=== PATIENT | female | born 1995 | race Caucasian/White ===

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

== ENCOUNTER 2017-02-14 11:30 | Emergency (ER) | payer MEDICAID, OTHER ==
[~2017-02-14] VITALS: Ht 157.5 cm; Wt 84.4 kg
[~2017-02-14 11:30] MED LIST changes: +ATOM40CA PO; +FLUO20CA9 PO; +NEXP1IMP SC; +NORC1TAB4 PO; -NORC5TAB PO; +OXAZ10CA PO
[2017-02-14 11:31] VITALS: BP 128/61
[2017-02-14] MEDS ORDERED: ACETAMINOPH W/CODEINE #3 TAB UD PO ONE (11:45)
[2017-02-14] MEDS ORDERED: NAPR500T2 PO (12:24)
--- NOTE | 2017-02-14 12:27 | REP ---
RIGHT WRIST, FOUR VIEWS: HISTORY: Fall. There is no acute fracture or dislocation. The joint spaces are normal in appearance. IMPRESSION: There is no acute fracture or dislocation. Signed by Mario Plunkett MD 02/14/2017 12:30 P
--- NOTE | 2017-02-14 15:07 | REP ---
RIGHT HAND, FOUR VIEWS: HISTORY: Fall. There is no acute fracture or dislocation. The joint spaces are normal in appearance. IMPRESSION: There is no acute fracture or dislocation. Signed by Mario Plunkett MD 02/14/2017 03:10 P
== END 2017-02-14 12:36 | disposition home or self-care (01) ==
LOC: M ED 11:57
DX: S60.221A Contusion of right hand, initial encounter (principal); S60.211A Contusion of right wrist, initial encounter; W01.0XXA Fall on same level from slipping, tripping and stumbling without subsequent striking against object, initial encounter; Y92.039 Unspecified place in apartment as the place of occurrence of the external cause; Y93.89 Activity, other specified; Y99.8 Other external cause status; F32.9 Major depressive disorder, single episode, unspecified; F41.9 Anxiety disorder, unspecified; Z79.899 Other long term (current) drug therapy; Z79.3 Long term (current) use of hormonal contraceptives; Z88.8 Allergy status to other drugs, medicaments and biological substances

== ENCOUNTER 2017-03-04 17:39 | Emergency (ER) | payer OTHER ==
[~2017-03-04] VITALS: Ht 154.9 cm; Wt 84.8 kg
[~2017-03-04 17:39] MED LIST changes: +NAPR500T2 PO
[2017-03-04] MEDS ORDERED: CLONI1TA PO (17:47)
[2017-03-04] MEDS: ONDANSETRON 4MG/2ML VIAL (J2405) IV ONE (19:06)
[2017-03-04] MEDS: NS 500 ML IV ONE (19:06)
[2017-03-04] MEDS: KETOROLAC 30 MG/ML VIAL (J1885) IV ONE (19:06)
[2017-03-04 19:13] LABS: BASO % 0.3 % (0.0-1.0); EOS # 0.6 K/mm3 (0.0-0.50); EOS % 4.8 % (0.0-3.0); LARGE UNSTAINED CELL # 0.2 K/mm3 (0.0-0.4); LARGE UNSTAINED CELL % 1.4 % (0.0-4.0); LYMPH # 3.5 K/mm3 (1.5-6.5); LYMPH % 27.1 % (24.0-44.0); MEAN CORPUSCULAR HEMOGLOBIN 26.9 pg (27.0-33.0); MEAN CORPUSCULAR HGB CONC 34.3 g/dl (32.0-36.5); MEAN CORPUSCULAR VOLUME 78.4 fl (80.0-96.0); MONO # 0.5 K/mm3 (0.0-0.8); MONO % 4.3 % (0.0-5.0); NEUTROPHILS # 7.6 K/mm3 (1.8-7.7); NEUTROPHILS % 62.1 % (36.0-66.0); PLATELET COUNT, AUTOMATED 299 k/mm3 (150-450); RED CELL DISTRIBUTION WIDTH 13.7 % (11.5-14.5); WHITE BLOOD COUNT 12.3 K/mm3 (4.0-10.0)
[2017-03-04 19:29] LABS: ALBUMIN 3.5 GM/DL (3.2-5.2); ALBUMIN/GLOBULIN RATIO 0.95 (1.00-1.93); ALKALINE PHOSPHATASE 79 U/L (45-117); ALT/SGPT 19 U/L (12-78); ANION GAP 6 MEQ/L (8-16); AST/SGOT 10 U/L (15-37); BILIRUBIN,DIRECT < 0.1 MG/DL (0.0-0.2); BILIRUBIN,TOTAL 0.3 MG/DL (0.2-1.0); BLOOD UREA NITROGEN 11 MG/DL (7-18); CALCIUM LEVEL 8.4 MG/DL (8.5-10.1); CARBON DIOXIDE LEVEL 27 MEQ/L (21-32); CHLORIDE LEVEL 109 MEQ/L (98-107); CREATININE FOR GFR 0.84 MG/DL (0.55-1.02); GLUCOSE, FASTING 84 MG/DL (70-105); POTASSIUM SERUM 3.6 MEQ/L (3.5-5.1); SODIUM LEVEL 142 MEQ/L (136-145); TOTAL PROTEIN 7.2 GM/DL (6.4-8.2)
[2017-03-04] MEDS: MORPHINE 4 MG/ML 1ML SYRINGE IV ONE (20:24)
[2017-03-04] MEDS ORDERED: ISOVUE-370 76% 100ML VIAL (Q9967) As Ordered ONE (20:41)
--- NOTE | 2017-03-04 21:30 | REPUSA ---
CT of the abdomen and pelvis with contrast Clinical statement: Pain. Technique: Multiple axial CT images were obtained from the base of the lungs through the floor of the pelvis utilizing 5 mm axial slices after administration of nonionic intravenous contrast. Coronal an d sagittal reconstructions were also obtained. Comparison: 05/05/2016. Findings: Chest: The visualized lung bases are clear. Abdomen: The liver, spleen, pancreas, kidneys, and adrenal glands are unremarkable. The patient is st atus post cholecystectomy. The aorta is within normal limits. There is no evidence of abdominal lymph adenopathy or ascites. Pelvis: The bowel is unremarkable, with no obstructive or inflammatory changes. The appendix is erica l. The urinary bladder is within normal limits. The other pelvic structures appear grossly intact. Th ere is no evidence of pelvic lymphadenopathy or ascites. Bones: There are no suspicious osseous abnormalities seen. Impression: Unremarkable CT examination of the abdomen and pelvis.
[2017-03-04 21:49] VITALS: BP 129/63
[2017-03-04] MEDS: MAGNESIUM CITRATE 300 ML BTL PO ONE (21:50)
== END 2017-03-04 21:52 | disposition home or self-care (01) ==
LOC: M ED 18:26
DX: K59.00 Constipation, unspecified (principal); Z79.3 Long term (current) use of hormonal contraceptives; Z79.899 Other long term (current) drug therapy; Z88.8 Allergy status to other drugs, medicaments and biological substances
CPT/HCPCS: 74177; 80048; 80076; 81001; 81025; 83690; 85025; 96361; 96374; 96375; 99283; J1885; J2405; Q9967

== ENCOUNTER 2017-03-31 11:34 | Emergency (ER) | payer OTHER ==
[~2017-03-31 11:34] MED LIST changes: +CLONI1TA PO; +FLUO20CA19 PO; -FLUO20CA9 PO; -NAPR500T2 PO; +NAPR500T3 PO; -OXAZ10CA PO; +OXAZ10CA3 PO
[2017-03-31 12:49] LABS: MEAN CORPUSCULAR HEMOGLOBIN 26.6 pg (27.0-33.0); MEAN CORPUSCULAR HGB CONC 34.1 g/dl (32.0-36.5); MEAN CORPUSCULAR VOLUME 77.9 fl (80.0-96.0); RED CELL DISTRIBUTION WIDTH 13.6 % (11.5-14.5); WHITE BLOOD COUNT 8.6 K/mm3 (4.0-10.0)
[2017-03-31 13:11] LABS: CONTROL LINE HCG INT CTR LINE PRESENT
[2017-03-31 14:09] LABS: ALBUMIN 3.6 GM/DL (3.2-5.2); ALBUMIN/GLOBULIN RATIO 1.03 (1.00-1.93); ALKALINE PHOSPHATASE 74 U/L (45-117); ALT/SGPT 17 U/L (12-78); ANION GAP 5 MEQ/L (8-16); AST/SGOT 8 U/L (15-37); BILIRUBIN,DIRECT < 0.1 MG/DL (0.0-0.2); BILIRUBIN,TOTAL 0.4 MG/DL (0.2-1.0); BLOOD UREA NITROGEN 12 MG/DL (7-18); CALCIUM LEVEL 8.7 MG/DL (8.5-10.1); CARBON DIOXIDE LEVEL 26 MEQ/L (21-32); CHLORIDE LEVEL 109 MEQ/L (98-107); CREATININE FOR GFR 0.78 MG/DL (0.55-1.02); GLUCOSE, FASTING 84 MG/DL (70-105); POTASSIUM SERUM 3.6 MEQ/L (3.5-5.1); SODIUM LEVEL 140 MEQ/L (136-145); TOTAL PROTEIN 7.1 GM/DL (6.4-8.2)
== END 2017-03-31 14:06 | disposition left against medical advice (07) ==
LOC: M ED 13:11
DX: S50.811A Abrasion of right forearm, initial encounter (principal); X78.1XXA Intentional self-harm by knife, initial encounter; Y92.9 Unspecified place or not applicable; Y93.9 Activity, unspecified; Y99.8 Other external cause status; F32.9 Major depressive disorder, single episode, unspecified; F41.9 Anxiety disorder, unspecified; F12.10 Cannabis abuse, uncomplicated; Z79.3 Long term (current) use of hormonal contraceptives; Z79.899 Other long term (current) drug therapy; Z88.8 Allergy status to other drugs, medicaments and biological substances

== ENCOUNTER 2017-04-13 16:54 | Emergency (ER) | payer OTHER ==
[~2017-04-13] VITALS: Ht 154.9 cm; Wt 84.0 kg
[2017-04-13] MEDS ORDERED: HYDR50TA70 PO (17:08)
[2017-04-13] MEDS ORDERED: BUSP10TA PO (17:08)
[2017-04-13 18:20] LABS: MEAN CORPUSCULAR HEMOGLOBIN 27.1 pg (27.0-33.0); MEAN CORPUSCULAR HGB CONC 34.4 g/dl (32.0-36.5); MEAN CORPUSCULAR VOLUME 78.7 fl (80.0-96.0); RED CELL DISTRIBUTION WIDTH 13.3 % (11.5-14.5); WHITE BLOOD COUNT 9.3 K/mm3 (4.0-10.0)
[2017-04-13 18:33] LABS: CONTROL LINE HCG INT CTR LINE PRESENT
[2017-04-13 18:36] LABS: METHADONE URINE NEGATIVE (NEGATIVE)
[2017-04-13 18:54] LABS: ALBUMIN 3.5 GM/DL (3.2-5.2); ALBUMIN/GLOBULIN RATIO 1.13 (1.00-1.93); ALKALINE PHOSPHATASE 74 U/L (45-117); ALT/SGPT 25 U/L (12-78); ANION GAP 6 MEQ/L (8-16); AST/SGOT 10 U/L (15-37); BILIRUBIN,DIRECT < 0.1 MG/DL (0.0-0.2); BILIRUBIN,TOTAL 0.2 MG/DL (0.2-1.0); BLOOD UREA NITROGEN 13 MG/DL (7-18); CALCIUM LEVEL 8.5 MG/DL (8.5-10.1); CARBON DIOXIDE LEVEL 26 MEQ/L (21-32); CHLORIDE LEVEL 113 MEQ/L (98-107); CREATININE FOR GFR 1.05 MG/DL (0.55-1.02); GLUCOSE, FASTING 88 MG/DL (70-105); POTASSIUM SERUM 3.8 MEQ/L (3.5-5.1); SODIUM LEVEL 145 MEQ/L (136-145); TOTAL PROTEIN 6.6 GM/DL (6.4-8.2)
[2017-04-13 19:17] VITALS: BP 136/74
== END 2017-04-13 19:19 | disposition home or self-care (01) ==
LOC: M ED 16:54
DX: F19.10 Other psychoactive substance abuse, uncomplicated (principal); F99 Mental disorder, not otherwise specified; Z79.899 Other long term (current) drug therapy; Z79.3 Long term (current) use of hormonal contraceptives; Z88.8 Allergy status to other drugs, medicaments and biological substances

== ENCOUNTER 2017-04-24 23:04 | Emergency (ER) | payer OTHER ==
[~2017-04-24] VITALS: Ht 157.5 cm; Wt 83.9 kg
[~2017-04-24 23:04] MED LIST changes: +BUSP10TA PO; +HYDR50TA70 PO
[2017-04-24] MEDS ORDERED: PRENTAB40 PO (23:24)
[2017-04-25] MEDS ORDERED: KETOROLAC 30 MG/ML VIAL (J1885) IV ONE (00:30)
[2017-04-25 01:24] LABS: BASO # 0.1 K/mm3 (0.0-0.2); BASO % 0.5 % (0.0-1.0); EOS # 0.5 K/mm3 (0.0-0.50); EOS % 3.9 % (0.0-3.0); LARGE UNSTAINED CELL # 0.2 K/mm3 (0.0-0.4); LARGE UNSTAINED CELL % 1.6 % (0.0-4.0); LYMPH # 3.7 K/mm3 (1.5-6.5); LYMPH % 28.2 % (24.0-44.0); MEAN CORPUSCULAR HEMOGLOBIN 26.2 pg (27.0-33.0); MEAN CORPUSCULAR HGB CONC 33.7 g/dl (32.0-36.5); MEAN CORPUSCULAR VOLUME 77.9 fl (80.0-96.0); MONO # 0.5 K/mm3 (0.0-0.8); NEUTROPHILS % 61.8 % (36.0-66.0); PLATELET COUNT, AUTOMATED 326 k/mm3 (150-450)
[2017-04-25 01:27] LABS: CONTROL LINE HCG INT CTR LINE PRESENT
[2017-04-25 01:29] LABS: METHADONE URINE NEGATIVE (NEGATIVE)
[2017-04-25 01:32] LABS: ANION GAP 6 MEQ/L (8-16); CARBON DIOXIDE LEVEL 25 MEQ/L (21-32); CHLORIDE LEVEL 107 MEQ/L (98-107); CREATININE FOR GFR 0.87 MG/DL (0.55-1.02); GLUCOSE, FASTING 85 MG/DL (70-105); POTASSIUM SERUM 3.5 MEQ/L (3.5-5.1); SODIUM LEVEL 138 MEQ/L (136-145)
[2017-04-25 01:35] LABS: BLOOD UREA NITROGEN 11 MG/DL (7-18)
--- NOTE | 2017-04-25 02:15 | REP ---
Clinical: Chest pain . Comparison: 07/22/2014 . Technique: PA and lateral. Findings: The mediastinum and cardiac silhouette are normal. The lung garcia are clear and without acute consolidation, effusion, or pneumothorax. The skeletal structures are intact and normal. Impression: 1. No acute cardiopulmonary process. Signed by Chava Sumner MD 04/25/2017 02:07 A
[2017-04-25] MEDS ORDERED: NAPR500T PO (03:21)
[2017-04-25 03:27] VITALS: BP 115/58
--- NOTE | 2017-04-25 21:43 | ECGEPIP ---
Stationary ECG Study [facility] - ED Test Date: 2017-04-24 Pat Name: DILCIA KAUR Department: Room: - Gender: F Building Certifier: : 1995 Requested By: ALFONSO Olmos Order Number: [id number] Reading MD: Luz Marina Meyer Measurements Intervals [place] Rate: 64 P: 43 [place]: 146 QRS: 57 QRSD: 87 T: 30 QT: 366 QTc: 379 Interpretive Statements SINUS RHYTHM WITH SINUS ARRHYTHMIA SIMILAR 12/27/16 Electronically Signed On 04-25-2017 21:43:10 EDT by Luz Marina Meyer
== END 2017-04-25 03:38 | disposition home or self-care (01) ==
LOC: M ED 23:04
DX: R07.89 Other chest pain (principal); D64.9 Anemia, unspecified; Z82.49 Family history of ischemic heart disease and other diseases of the circulatory system; Z88.8 Allergy status to other drugs, medicaments and biological substances; Z79.3 Long term (current) use of hormonal contraceptives; Z79.899 Other long term (current) drug therapy

== ENCOUNTER 2017-05-13 21:23 | Emergency (ER) | payer OTHER ==
[~2017-05-13] VITALS: Ht 157.5 cm; Wt 84.5 kg
[~2017-05-13 21:23] MED LIST changes: +NAPR500T PO; +PRENTAB40 PO
[2017-05-13 21:24] VITALS: BP 123/71
[2017-05-13] MEDS ORDERED: NAPROXEN 250 MG TAB PO ONE (22:15)
--- NOTE | 2017-05-14 01:56 | REP ---
Clinical: Trauma. Technique: AP, lateral, bilateral oblique views right wrist . Findings: The carpal bones, surrounding osseous structures, soft tissues, and joint spaces are normal. There is no evidence for acute fracture or dislocation. No subcutaneous emphysema or radiodense foreign body. Impression: Normal wrist series. No acute fracture or dislocation Signed by Chava Sumner MD 05/14/2017 01:48 A
== END 2017-05-13 23:06 | disposition home or self-care (01) ==
LOC: M ED 21:23
DX: S60.211A Contusion of right wrist, initial encounter (principal); Y04.8XXA Assault by other bodily force, initial encounter; Y92.019 Unspecified place in single-family (private) house as the place of occurrence of the external cause; Y93.9 Activity, unspecified; Y99.8 Other external cause status; F32.9 Major depressive disorder, single episode, unspecified; F41.9 Anxiety disorder, unspecified; G43.909 Migraine, unspecified, not intractable, without status migrainosus; Z90.49 Acquired absence of other specified parts of digestive tract; Z79.3 Long term (current) use of hormonal contraceptives; Z79.899 Other long term (current) drug therapy; Z88.8 Allergy status to other drugs, medicaments and biological substances

== ENCOUNTER 2017-05-21 18:46 | Inpatient (IN) | payer MEDICAID, OTHER ==
[~2017-05-21] VITALS: Ht 157.5 cm; Wt 86.4 kg
[2017-05-21 20:32] LABS: MEAN CORPUSCULAR HEMOGLOBIN 26.1 pg (27.0-33.0); MEAN CORPUSCULAR VOLUME 76.9 fl (80.0-96.0); RED CELL DISTRIBUTION WIDTH 12.9 % (11.5-14.5); WHITE BLOOD COUNT 10.2 K/mm3 (4.0-10.0)
[2017-05-21 20:47] LABS: CONTROL LINE HCG INT CTR LINE PRESENT
[2017-05-21 20:54] LABS: METHADONE URINE NEGATIVE (NEGATIVE)
[2017-05-21 21:03] LABS: ALBUMIN 3.5 GM/DL (3.2-5.2); ALBUMIN/GLOBULIN RATIO 1.06 (1.00-1.93); ALKALINE PHOSPHATASE 87 U/L (45-117); ALT/SGPT 25 U/L (12-78); ANION GAP 10 MEQ/L (8-16); AST/SGOT 17 U/L (15-37); BILIRUBIN,DIRECT 0.1 MG/DL (0.0-0.2); BILIRUBIN,TOTAL 0.4 MG/DL (0.2-1.0); BLOOD UREA NITROGEN 13 MG/DL (7-18); CALCIUM LEVEL 8.7 MG/DL (8.5-10.1); CARBON DIOXIDE LEVEL 24 MEQ/L (21-32); CHLORIDE LEVEL 108 MEQ/L (98-107); CREATININE FOR GFR 0.82 MG/DL (0.55-1.02); GLUCOSE, FASTING 85 MG/DL (70-105); POTASSIUM SERUM 3.8 MEQ/L (3.5-5.1); SODIUM LEVEL 142 MEQ/L (136-145); TOTAL PROTEIN 6.8 GM/DL (6.4-8.2)
[2017-05-21] MEDS ORDERED: traZODone 50 MG TAB PO PRN (21:30)
[2017-05-21] MEDS ORDERED: MOM 30ML SUSPENSION UDC PO PRN (21:30)
[2017-05-21] MEDS ORDERED: MAALOX 30 ML SUSP *UDC PO PRN (21:30)
[2017-05-21] MEDS ORDERED: VITA1CAP40 PO (22:21)
[2017-05-21] MEDS ORDERED: BUSP1TAB PO (22:21)
[2017-05-22 07:00] VITALS: BP 110/50
[2017-05-22] MEDS ORDERED: MUPIROCIN 2% OINT 22 GM TUBE TOP PRN (10:45)
--- NOTE | 2017-05-22 10:47 | HPEPDOC ---
Medical History and Physical Date of Admission May 21, 2017 at 21:20 History and Physical PCP: Mirtha TEAGUE ATTENDING: Dr. Ishan Nieves HPI:21yoF admitted to [facility] for unspecified depressive disorder, being medically examined today. No acute medical complaints today. Patient reports a recent piercing on the left upper lip which was done unprofessionally. There is some irritation noted. No drainage. Bilateral superficial forearm lacerations, patient denies pain. Denies any fevers, chills, weakness, fatigue, VAZQUEZ, CP, SOB, cough, palpitations, abdominal pain, N/V/D or changes in bowel or bladder habits. PMHx: Endometriosis Bipolar disorder Personality disorder ADHD Anxiety Depression Self-mutilation PTSD Obesity BMI 34.1 Asthma Vitamin D deficiency PSHX: Tonsillectomy/adenoidectomy Cholecystectomy Tympanostomy tubes D&C Fernando 2013 Nexplanon SOCHX: Resides in: Patient states she is homeless Marital Status: Single Kids: None Employment: Currently pursuing GED Tobacco use: Denies ETOH: Patient states 5 shots of liquor yesterday Illicit Drugs: Patient states she has not used any substances in 2 months. From December until March 2017 states she was using heroin, methamphetamine, crack cocaine, cocaine and Qi. IV Drug Use: 1 per patient Tattoos done unprofessionally: 2 FAMHX: Mother: Alive, heart disease, ADMINISTRATIVE LIBRARY ASSISTANT cancer Father: Alive, unknown Siblings: Alive, well Children: Alive, well Unexpected deaths due to medical reasons: None. ROS: As noted in HPI, otherwise 11pt ROS of systems reviewed and remarkable only for LMP April 2017, patient with Nexplanon. PE: GEN: 21yoF, appears stated age. Well-nourished, well developed. No acute distress. Alert and oriented x 3. Pleasant, interactive. HEENT: Normocephalic, atraumatic. Pupils are equal, round, and reactive to light. Extraocular movements are intact. No nystagmus appreciated. Sclera are nonicteric. Conjunctiva without injection. Nose midline. Nasal turbinates without bogginess. EACs both patent BL. TMs both visualized and martinez with good cone of light, no bulging or erythema. No facial asymmetry. Moist mucous membranes. Dentition fair. Pharynx pink and moist, no cobblestoning. There is a piercing noted in the left upper lip with mild erythema, no drainage. Neck supple, trachea midline. No lymphadenopathy or thyromegaly appreciated. CHEST: Regular rate and rhythm, +S1, +S2 LUNGS: Clear to auscultation bilaterally. No wheezes, rales, or rhonchi. Breathing appears symmetric and easy. Patient is speaking in full sentences. No accessory muscle use. ABD: Round, soft, non-tender, non-distended. +Bowel sounds throughout. No rebound or guarding. No costovertebral angle tenderness. EXT: Pulses 2+ bilaterally dorsalis pedis and radial. No lower extremity edema appreciated. SKIN: [place]omin[place], dry, warm. Capillary refill <2sec. No rashes. Bilateral forearm lacerations are noted, superficial. Mild erythema, no drainage. NEURO: Alert and oriented x 3. Cranial nerves III-XII are intact. No focal deficits appreciated. EKG: pending. A&P: 21yoF admitted to [facility] for unspecified depressive disorder 1. Psych. Plan per Psychiatry. Obtain baseline EKG to assure the safety of psychiatric medications as they can prolong the QT interval. 2. IVDU. Patient agrees to HIV and hepatitis screening. 3. Asthma. Albuterol HFA 2 puffs every 4 hours as needed. 4. Follow up with PCP on discharge. 5. Obesity. BMI 34.1. Complicates care. TSH is noted within normal limits. Glucose is noted within normal limits. 6. Mild leukocytosis. Patient is afebrile. Asymptomatic. Recheck CBC in a.m. 7. Bilateral superficial forearm lacerations. Apply Bactroban twice a day as needed. Dry dressing if needed. 8. Recent left upper lip piercing. Apply Bactroban twice a day as needed. Keep area clean and dry. 9. Vitamin D deficiency. Continue vitamin D 50,000 units weekly. 10. Staff member Erica present throughout exam. Vital Signs Vital Signs Date Time Temp Pulse Resp B/P (MAP) Pulse Ox O2 Delivery O2 Flow Rate FiO2 05/22/17 07:00 98.8 89 16 110/50 (70) 95 Room Air Laboratory Data Labs 24H Laboratory Tests 2 05/21/17 19:43: Anion Gap 10, Calcium Level 8.7, Aspartate Amino Transf (AST/SGOT) 17, Alanine Aminotransferase (ALT/SGPT) 25, Alkaline Phosphatase 87, Total Bilirubin 0.4, Direct Bilirubin 0.1, Total Protein 6.8, Albumin 3.5, Albumin/Globulin Ratio 1.06, Thyroid Stimulating Hormone (TSH) 2.610, Human Chorionic Gonadotropin, Qual NEGATIVE, Salicylates Level < 1.7L, Urine Amphetamines Screen NEGATIVE, Urine Benzodiazepines Screen NEGATIVE, Urine Opiates Screen NEGATIVE, Urine Methadone Screen NEGATIVE, Acetaminophen Level < 2.0L, Urine Barbiturates Screen NEGATIVE, Urine Phencyclidine Screen NEGATIVE, Urine Cocaine Metabolite Screen NEGATIVE, Urine Cannabinoids Screen NEGATIVE, Ethyl Alcohol Level < 0.003 CBC/BMP Laboratory Tests 05/21/17 19:43 Red Blood Count 4.66, Mean Corpuscular Volume 76.9 L, Mean Corpuscular Hemoglobin 26.1 L, Mean Corpuscular Hemoglobin Concent 34.0, Red Cell Distribution Width 12.9 Home Medications Scheduled Buspirone HCl (Buspirone HCl) 7.5 Mg Tab, 7.5 MG PO BID Ergocalciferol (Vitamin D) 50,000 Unit Cap, 50,000 UNIT PO 1XWK TAKES ON SUNDAY MORNINGS Etonogestrel (Nexplanon) 68 Mg Imp, 68 MG SC ASDIRECTED IMPLANTED IN SEPTEMBER 2016; TO BE TAKEN OUT 05/29/17 Hydroxyzine HCl (Hydroxyzine HCl) 50 Mg Tab, 50 MG PO QHS Allergies Coded Allergies: Permethrin (Verified Allergy, Severe, LOTION FOR SCABIES - DIFFICULTY BREATHING, 05/30/16) Halle Giang May 22, 2017 10:47
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
[2017-05-22] MEDS: busPIRone 10 MG TAB PO SCH ×2 (14:47→21:10)
[2017-05-22 18:16] VITALS: BP 125/68
[2017-05-22] MEDS: DIVALPROEX 250MG *ER* TAB PO SCH (21:10)
[2017-05-22] MEDS: ACETAMINOPHEN TAB 650MG DOSE (2X325MG) PO PRN (21:11)
[2017-05-23] MEDS ORDERED: IBUPROFEN 400 MG TAB PO PRN (04:45)
[2017-05-23 07:03] VITALS: BP 117/53
[2017-05-23] MEDS: ACETAMINOPHEN TAB 650MG DOSE (2X325MG) PO PRN ×3 (07:55→21:37)
[2017-05-23 08:06] LABS: MEAN CORPUSCULAR HEMOGLOBIN 26.1 pg (27.0-33.0); MEAN CORPUSCULAR HGB CONC 33.9 g/dl (32.0-36.5); MEAN CORPUSCULAR VOLUME 77.1 fl (80.0-96.0); RED CELL DISTRIBUTION WIDTH 13.1 % (11.5-14.5); WHITE BLOOD COUNT 8.6 K/mm3 (4.0-10.0)
--- NOTE | 2017-05-23 10:55 | MHIPNPDOC ---
[facility] Progress Note Progress Note DATE OF SERVICE: 05/23/17 HISTORY: day 3 of admission for SI. VITAL SIGNS: See below. NEW TEST RESULTS: Hepatitis C Testing- all hepatitis tests and HIV testing were negative CURRENT MEDICATIONS: See below. MENTAL STATUS EXAMINATION: Patient is a 21-year old female, who is freshly showered with wet hair, glasses and appropriate street clothes. Speech: Is clear and logical. Language skills are good. Thought processes including: goal directed. Thought content: appropriate. Abstract reasoning, and computation: good. Description of associations: good. Description of abnormal or psychotic thoughts: denies Aud/Vis disturbance, no delusions of ROSAURA, no FOI. Pt is not currently having suicidal thoughts. Judgment: limited Insight: good. Orientation: well oriented in all spheres. Recent and remote memory: intact. Attention span and concentration: appears adequate. Fund of knowledge: Full. Mood: depressed. Affect: congruent. DIAGNOSES: 1. Bipolar I disorder, current episode depressed, severe without psychotic features ADHD PTSD, chronic Substance abuse in early remission (amphetamines, hallucinogenics, cocaine, cannabis) ASSESSMENT:pts superficial lacerations are highly visible on her forearms. They do not appear infected and are healing slowly. she is keeping them clean. Pt was visited by her mother last night who provided her with clothing. She is in need of a brush and directed to discuss this with staff. Pt attended programming as requested and says the groups are going "okay". Pt reports adequate appetite and po intake. pt reports adequate sleep and states she slept "really well last night". Pt has had 1 dose of Depakote and BuSpar each.She said the BuSpar made her sleepy in the afternoon and she slept about 3 hours. Hopefully her tolerance will increase. MANAGEMENT PLAN: Continue to assess for safety. Monitor effects of medications. Continue close observation and group attendance. Pt states she has "social anxiety" so she will sit in group but does not feel comfortable talking. TIME SPENT: 25 minutes. Vital Signs Vital Signs Date Time Temp Pulse Resp B/P (MAP) Pulse Ox O2 Delivery O2 Flow Rate FiO2 05/23/17 07:03 99.0 63 16 117/53 (74) Room Air 05/22/17 07:00 95 Laboratory Data 24H Labs Laboratory Tests 2 05/23/17 07:38: 25-Hydroxy Vitamin D Total 29.6L CBC/BMP Laboratory Tests 05/23/17 07:38 Red Blood Count 4.78, Mean Corpuscular Volume 77.1 L, Mean Corpuscular Hemoglobin 26.1 L, Mean Corpuscular Hemoglobin Concent 33.9, Red Cell Distribution Width 13.1 Current Medications Current Medications Acetaminophen (Tylenol Tab) 650 mg Q6HP PRN PO HEADACHE or DISCOMFORT Last administered on 05/23/17 07:55; Start 05/21/17 at 21:30; Stop 06/20/17 at 21:29 Al Hydrox/Mg Hydrox/Simethicone (Mylanta) 30 ml Q4HP PRN PO HEARTBURN/ INDIGESTION; Start 05/21/17 at 21:30; Stop 06/20/17 at 21:29 Buspirone HCl (Buspar) 10 mg BID@1430,2100 PO Last administered on 05/22/17 21: 10; Start 05/22/17 at 14:30; Stop 06/21/17 at 14:29 Divalproex Sodium (Depakote Er) 250 mg QHS PO Last administered on 05/22/17 21: 10; Start 05/22/17 at 21:00; Stop 06/21/17 at 20:59 Home Med (Med Rec Complete!) ASDIRECTED XX ; Start 05/21/17 at 22:30; Stop at 22:30; Status DC Ibuprofen (Advil) 400 mg Q8HP PRN PO TOOTHACHE; Start 05/23/17 at 04:45; Stop at 04:44 Magnesium Hydroxide (Milk Of Magnesia) 30 ml DAILYPRN PRN PO CONSTIPATION; Start 05/21/17 at 21:30; Stop 06/20/17 at 21:29 Mupirocin (Bactroban 2% Ointment) 1 dose BID PRN TOP REDNESS/IRRITATION Last administered on 05/22/17 14:48; Start 05/22/17 at 10:45; Stop 06/21/17 at 10:44 Trazodone HCl (Desyrel) 50 mg QHSP PRN PO INSOMNIA; Start 05/21/17 at 21:30; Stop 06/20/17 at 21:29; Status Cancel Allergies Coded Allergies: Permethrin (Verified Allergy, Severe, LOTION FOR SCABIES - DIFFICULTY BREATHING, 05/30/16) Ev Eisenberg May 23, 2017 10:55
[2017-05-23] MEDS: VITAMIN D 1,000 INTERNATIONAL UNITS TABLET PO SCH (12:34)
[2017-05-23] MEDS: busPIRone 10 MG TAB PO SCH ×2 (14:48→21:37)
[2017-05-23 18:10] VITALS: BP 127/68
[2017-05-23] MEDS: DIVALPROEX 250MG *ER* TAB PO SCH (21:37)
--- NOTE | 2017-05-23 22:41 | ECGEPIP ---
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
[2017-05-24 07:19] VITALS: BP 133/70
[2017-05-24] MEDS: VITAMIN D 1,000 INTERNATIONAL UNITS TABLET PO SCH (08:51)
[2017-05-24] MEDS: ACETAMINOPHEN TAB 650MG DOSE (2X325MG) PO PRN ×2 (11:37→21:03)
[2017-05-24] MEDS: busPIRone 10 MG TAB PO SCH (14:33)
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
[2017-05-24 18:00] VITALS: BP 129/64
[2017-05-24] MEDS: AMITRIPTYLINE 50 MG TAB PO SCH (21:03)
[2017-05-24] MEDS: DIVALPROEX 500MG *ER* TAB PO SCH (21:05)
[2017-05-25 07:00] VITALS: BP 118/57
[2017-05-25] MEDS: VITAMIN D 1,000 INTERNATIONAL UNITS TABLET PO SCH (09:27)
[2017-05-25] MEDS: busPIRone 10 MG TAB PO SCH ×2 (11:23→14:07)
--- NOTE | 2017-05-25 13:36 | MHIPNPDOC ---
[facility] Progress Note Progress Note DATE OF SERVICE: 05/25/17 HISTORY: day 5 of admission for self harm after eviction notice and break up with BF. [place] overwhelmed. VITAL SIGNS: See below. NEW TEST RESULTS: na CURRENT MEDICATIONS: See below. MENTAL STATUS EXAMINATION: Patient is a 21 -year old female, who is short in stature, dark hair, glasses, good eye contact, appears her age, cooperative. Speech: Is spontaneous. Language skills are intact Thought processes including: goal directed. Thought content: appropriate. Abstract reasoning, and computation: good. Description of associations: clear. Description of abnormal or psychotic thoughts: no psychosis. pt denies thoughts or intent of self-harm. Judgment: good. Insight: good. Orientation: well oriented in all spheres. Recent and remote memory: good. Attention span and concentration: varies Fund of knowledge: Full Mood: euthymic. Affect: blunted. DIAGNOSES: 1. Bipolar I disorder, current episode depressed, severe without psychotic features ADHD PTSD, chronic Substance abuse in early remission (amphetamines, hallucinogenics, cocaine, cannabis) . ASSESSMENT:pt reports a much better night of sleep last night and no odd dreams. Changing the dosing schedule of BuSpar and stopping trazodone for amitriptyline has hopefully resolved the issue. She say she feels better on her current combination of medication and does not feel she needs to have Seroquel added as before. Will start her Strattera now. Pt states she is happy with her current medication regime. Pt is attending programming and eating well at meals. Her hygiene is good. Her mood is improved. She has an appt today on the unit with Case Mgt services. No side effects reported regarding starting new meds. Denies problems with n/v/ d or skin rash. No SOB. Denies current SI or HI. Denies impulse to harm self. Appears to be improving. MANAGEMENT PLAN: continue Depakote taper. Will raise to 750mg at hs over weekend and draw a level mid week. After we have a valproic acid level and have established a good sleep pattern we can begin more earnestly to explore housing options however that is already underway. Pt has a job she wants to return to. Continue close observation, continue meds and groups. TIME SPENT: 15 minutes. Vital Signs Vital Signs Date Time Temp Pulse Resp B/P (MAP) Pulse Ox O2 Delivery O2 Flow Rate FiO2 05/25/17 07:00 99.0 66 19 118/57 (77) 05/24/17 07:19 Room Air 05/22/17 07:00 95 Current Medications Current Medications Acetaminophen (Tylenol Tab) 650 mg Q6HP PRN PO HEADACHE or DISCOMFORT Last administered on 05/24/17 21:03; Start 05/21/17 at 21:30; Stop 06/20/17 at 21:29 Al Hydrox/Mg Hydrox/Simethicone (Mylanta) 30 ml Q4HP PRN PO HEARTBURN/ INDIGESTION; Start 05/21/17 at 21:30; Stop 06/20/17 at 21:29 Amitriptyline HCl (Elavil) 100 mg QHS PO Last administered on 05/24/17 21:03; Start 05/24/17 at 21:00; Stop 06/23/17 at 20:59 Buspirone HCl (Buspar) 10 mg BID@1430,2100 PO Last administered on 05/23/17 21: 37; Start 05/22/17 at 14:30; Stop 05/24/17 at 12:15; Status DC Buspirone HCl (Buspar) 10 mg DAILY@1030,1430 PO Last administered on 05/25/17 11:23; Start 05/24/17 at 14:30; Stop 06/23/17 at 14:29 Divalproex Sodium (Depakote Er) 250 mg QHS PO Last administered on 05/23/17 21: 37; Start 05/22/17 at 21:00; Stop 05/24/17 at 12:15; Status DC Divalproex Sodium (Depakote Er) 500 mg QHS PO Last administered on 05/24/17 21 :05; Start 05/24/17 at 21:00; Stop 05/26/17 at 20:59 Divalproex Sodium (Depakote Er) 750 mg QHS PO ; Start 05/26/17 at 21:00; Stop at 20:59 Home Med (Med Rec Complete!) ASDIRECTED XX ; Start 05/21/17 at 22:30; Stop at 22:30; Status DC Ibuprofen (Advil) 400 mg Q8HP PRN PO TOOTHACHE; Start 05/23/17 at 04:45; Stop at 04:44 Magnesium Hydroxide (Milk Of Magnesia) 30 ml DAILYPRN PRN PO CONSTIPATION; Start 05/21/17 at 21:30; Stop 06/20/17 at 21:29 Mupirocin (Bactroban 2% Ointment) 1 dose BID PRN TOP REDNESS/IRRITATION Last administered on 05/22/17 14:48; Start 05/22/17 at 10:45; Stop 06/21/17 at 10:44 Trazodone HCl (Desyrel) 50 mg QHSP PRN PO INSOMNIA; Start 05/21/17 at 21:30; Stop 06/20/17 at 21:29; Status Cancel Vitamin D (Vitamin D) 2,000 units DAILY PO Last administered on 05/25/17 09:27 ; Start 05/23/17 at 09:00; Stop 06/22/17 at 08:59 Allergies Coded Allergies: Permethrin (Verified Allergy, Severe, LOTION FOR SCABIES - DIFFICULTY BREATHING, 05/30/16) Ev Eisenberg May 25, 2017 13:36
[2017-05-25 18:00] VITALS: BP 110/53
[2017-05-25] MEDS: ACETAMINOPHEN TAB 650MG DOSE (2X325MG) PO PRN (20:21)
[2017-05-25] MEDS: AMITRIPTYLINE 50 MG TAB PO SCH (21:20)
[2017-05-25] MEDS: DIVALPROEX 500MG *ER* TAB PO SCH (21:20)
[2017-05-26 06:56] VITALS: BP 107/51
[2017-05-26] MEDS: VITAMIN D 1,000 INTERNATIONAL UNITS TABLET PO SCH (09:42)
[2017-05-26] MEDS: ATOMOXETINE HCL 40 MG CAP (STRATTERA) PO SCH (09:42)
[2017-05-26] MEDS: busPIRone 10 MG TAB PO SCH ×2 (09:43→13:59)
[2017-05-26 18:00] VITALS: BP 127/68
[2017-05-26] MEDS: IBUPROFEN 600 MG TAB PO PRN (22:12)
[2017-05-26] MEDS: DIVALPROEX 250MG *ER* TAB PO SCH (22:12)
[2017-05-26] MEDS: AMITRIPTYLINE 50 MG TAB PO SCH (22:13)
[2017-05-27 06:42] VITALS: BP 111/59
[2017-05-27] MEDS: ATOMOXETINE HCL 40 MG CAP (STRATTERA) PO SCH (09:09)
[2017-05-27] MEDS: VITAMIN D 1,000 INTERNATIONAL UNITS TABLET PO SCH (09:09)
[2017-05-27] MEDS: busPIRone 10 MG TAB PO SCH ×2 (09:41→13:58)
[2017-05-27] MEDS: IBUPROFEN 600 MG TAB PO PRN ×2 (13:09→21:29)
[2017-05-27 18:39] VITALS: BP 135/73
[2017-05-27] MEDS: AMITRIPTYLINE 50 MG TAB PO SCH (21:29)
[2017-05-27] MEDS: DIVALPROEX 250MG *ER* TAB PO SCH (21:29)
[2017-05-27] MEDS: ACETAMINOPHEN TAB 650MG DOSE (2X325MG) PO PRN (21:30)
[2017-05-28 07:24] VITALS: BP 120/56
[2017-05-28] MEDS: busPIRone 10 MG TAB PO SCH ×2 (09:06→14:30)
[2017-05-28] MEDS: VITAMIN D 1,000 INTERNATIONAL UNITS TABLET PO SCH (09:06)
[2017-05-28] MEDS: ATOMOXETINE HCL 40 MG CAP (STRATTERA) PO SCH (09:06)
[2017-05-28] MEDS ORDERED: DEPA250T2 PO (15:25)
[2017-05-28] MEDS ORDERED: BUSP10TA PO (15:25)
[2017-05-28] MEDS ORDERED: IBUP1TAB6 PO (15:25)
[2017-05-28] MEDS ORDERED: AMIT50TA PO (15:25)
[2017-05-28] MEDS ORDERED: ATOM40CA PO (15:25)
--- NOTE | 2017-05-28 15:38 | MHDSPDOC ---
[facility] Discharge Summary Discharge Summary DATE OF ADMISSION: May 21, 2017 at 21:20 DATE OF DISCHARGE: May 28, 2017 DISCHARGE DIAGNOSES: 1. 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 admitted with depression and suicidal ideation. CONSULTANTS INVOLVED: na TREATMENT AND PROGRESS ON THE UNIT : Pt adapted well to the unit. She willingly attended programming and showed that she was invested in her recovery. She has used cutting to vent her frustration over the last several years. She wants to stop but the situation she was in was overwhelming for her. Lisa works at [employer]. She expresses a desire to be on her own and take care of herself. She appears committed to living drug free and staying away from people who will influence her to use drugs. She is proud of having 2 months of clean time. HOSPITAL COURSE: Pt went to programming. She participated in treatment planning and discharge planning. She was helpful and kind to peers.She took medications as prescribed. She could verbalize her lack of impulse control when it comes to cutting and to drug use. She did not feel that her former medications were helping enough. She also has high anxiety and was started on BuSpar while she was here. It will take another week for that medication to become fully therapeutic so she should experience additional relief from the BuSpar. Her Depakote was started at 250 mg at hs and gradually titrated to 750 mg. She was to have a Depakote level tomorrow but was ready for discharge before that could be done. Pt had some difficulty with insomnia when first admitted. She could not take trazodone as it "makes me rageful" so we tried Amitriptyline which she remembered from the past as being helpful for her. She did well on this at 100 mg. No further concerns about insomnia after that. Pt had also been prescribed Strattera for ADHD in the past. Our lowest dose in formulary is 40 mg so she started this last weekend. She states it has helped her focus and her anxiety. Pt tolerated Depakote without problems. She was fully informed about side effects including weight gain and a felling of sluggishness or fatigue. Pt encouraged to exercise regularly and to eat healthy food, less carbs, more protein. Pt also tolerated BuSpar without too much fatigue or dry mouth. She found this medication beneficial as well. DISCHARGE ASSESSMENT: Pt will be discharged on Amitriptyline at hs, BuSpar bid , Depakote at hs and Strattera for ADHD. Her prior authorization for Strattera was faxed to the insurance company prior to leaving the hospital. Pt. is referred for PCP follow up, therapy and medication management. MH needs are addressed by [facility]. She will be living at her Grandmother's with her 3 sisters until DSS or [facility] comes through with housing for her. She has completed paper work for [facility] and is working with [facility] on housing needs. MENTAL STATUS EXAMINATION ON DISCHARGE: Patient is a 21-year old female, who is petite, dark hair, glasses, pleasant mood. Speech is clear. Language skills are intact Thought processes including: goal directed Thought content: appropriate Abstract reasoning, and computation: good. Description of associations: good. Description of abnormal or psychotic thoughts: denies SI and HI, no psychotic symptoms displayed this admission. Judgment: good Insight: good. Orientation to all spheres. Recent and remote memory: intact Attention span and concentration:adequate/good Fund of knowledge:Full Mood: euthymic Affect: some anxiety at times, congruent. MEDICATIONS ON DISCHARGE: - amitriptyline for sleep. - Strattera for ADHD. - BuSpar for anxiety. -Depakote for mood control, impulse control. PLAN/FOLLOWUP ARRANGEMENTS: [facility] appts made for med mgt and therapy. Pt also met with CM while on the unit. The amount of time spent in the coordination of care for this patient was approximately 30 minutes. Vital Signs/I&Os Vital Signs Date Time Temp Pulse Resp B/P (MAP) Pulse Ox O2 Delivery O2 Flow Rate FiO2 05/28/17 07:24 98.3 63 16 120/56 (77) Room Air 05/22/17 07:00 95 Medications Scheduled Amitriptyline HCl (Amitriptyline HCl) 50 Mg Tab, 100 MG PO QHS for INSOMNIA for 7 Days, #7 Atomoxetine HCl (Strattera) 40 Mg Cap, 40 MG PO QAM for adhd for 7 Days, #7 Buspirone HCl (Buspirone HCl) 10 Mg Tab, 10 MG PO DAILY@1030,1430 for ANXIETY for 7 Days, #14 Divalproex Sodium (Depakote ER) 250 Mg Tab, 750 MG PO QHS for impulse control for 7 Days, #21 Ergocalciferol (Vitamin D) 50,000 Unit Cap, 50,000 UNIT PO 1XWK, (Reported) TAKES ON SUNDAY MORNINGS Etonogestrel (Nexplanon) 68 Mg Imp, 68 MG SC ASDIRECTED, (Reported) IMPLANTED IN SEPTEMBER 2016; TO BE TAKEN OUT 05/29/17 Hydroxyzine HCl (Hydroxyzine HCl) 50 Mg Tab, 50 MG PO QHS, (Reported) Scheduled PRN Ibuprofen (Ibuprofen) 600 Mg Tab, 600 MG PO Q6HP PRN for MENSTRUAL CRAMPS for 7 Days, #28 Allergies Coded Allergies: Permethrin (Verified Allergy, Severe, LOTION FOR SCABIES - DIFFICULTY BREATHING, 05/30/16) Ev Eisenberg May 28, 2017 15:38
== END 2017-05-28 16:35 | disposition home or self-care (01) | DRG 885 ==
LOC: M ED 18:46 → M ED INP 21:20 → M PSY 05-22 00:15
PROVIDERS: ADMIT Psychiatry & Neurology Psychiatry; ATTEND Psychiatry & Neurology Psychiatry
DX: F31.4 Bipolar disorder, current episode depressed, severe, without psychotic features (principal); R45.851 Suicidal ideations; F43.12 Post-traumatic stress disorder, chronic; F90.8 Attention-deficit hyperactivity disorder, other type; F19.10 Other psychoactive substance abuse, uncomplicated; Z79.899 Other long term (current) drug therapy; Z88.8 Allergy status to other drugs, medicaments and biological substances; Z91.5 Personal history of self-harm; Z90.49 Acquired absence of other specified parts of digestive tract; J45.909 Unspecified asthma, uncomplicated; E66.9 Obesity, unspecified; D72.829 Elevated white blood cell count, unspecified; E55.9 Vitamin D deficiency, unspecified; S51.812A Laceration without foreign body of left forearm, initial encounter; S51.811A Laceration without foreign body of right forearm, initial encounter; X78.9XXA Intentional self-harm by unspecified sharp object, initial encounter; Y92.9 Unspecified place or not applicable; Y93.9 Activity, unspecified; Y99.9 Unspecified external cause status

== ENCOUNTER 2017-06-15 12:38 | Emergency (ER) | payer MEDICAID, OTHER ==
[~2017-06-15] VITALS: Ht 157.5 cm; Wt 86.4 kg
[~2017-06-15 12:38] MED LIST changes: +AMIT50TA PO; +BUSP1TAB PO; +DEPA250T2 PO; +IBUP1TAB6 PO; +VITA1CAP40 PO
[2017-06-15] MEDS ORDERED: KETOROLAC 60 MG/2 ML VIAL (J1885) IM ONE (14:00)
[2017-06-15] MEDS ORDERED: PRED20TA PO (15:19)
[2017-06-15] MEDS ORDERED: CYCL10TA PO (15:22)
[2017-06-15] MEDS ORDERED: CYCLOBENZAPRINE 10 MG TAB PO ONE (15:30)
[2017-06-15 15:37] VITALS: BP 121/63
== END 2017-06-15 15:38 | disposition home or self-care (01) ==
LOC: M ED 12:38
DX: S39.012A Strain of muscle, fascia and tendon of lower back, initial encounter (principal); X58.XXXA Exposure to other specified factors, initial encounter; Y92.89 Other specified places as the place of occurrence of the external cause; Y93.89 Activity, other specified; Y99.8 Other external cause status; N80.9 Endometriosis, unspecified; F41.9 Anxiety disorder, unspecified; Z88.8 Allergy status to other drugs, medicaments and biological substances; Z79.899 Other long term (current) drug therapy
CPT/HCPCS: 36415; 81001; 81025; 96372; 99283; J1885

== ENCOUNTER 2017-07-10 16:42 | Emergency (ER) | payer MEDICAID, OTHER ==
[~2017-07-10] VITALS: Ht 157.5 cm; Wt 81.8 kg
[~2017-07-10 16:42] MED LIST changes: +CYCL10TA PO; +PRED20TA PO
[2017-07-10 16:43] VITALS: BP 131/80
[2017-07-10] MEDS ORDERED: IBUP-1022 PO (18:11)
--- NOTE | 2017-07-10 18:59 | REP ---
Right ankle four views : There is no fracture or dislocation. Mineralization and joint spaces are normal. There are no calcifications or foreign bodies. Impression: Negative right ankle. There is no change 03/26/2016. No dominant . Signed by Vinay Ríos MD 07/10/2017 06:51 P
== END 2017-07-10 18:32 | disposition home or self-care (01) ==
LOC: M ED 16:42
DX: S93.401A Sprain of unspecified ligament of right ankle, initial encounter (principal); W19.XXXA Unspecified fall, initial encounter; X50.9XXA Other and unspecified overexertion or strenuous movements or postures, initial encounter; Y92.019 Unspecified place in single-family (private) house as the place of occurrence of the external cause; Y93.01 Activity, walking, marching and hiking; Y99.8 Other external cause status; Z79.899 Other long term (current) drug therapy; Z79.3 Long term (current) use of hormonal contraceptives; Z88.8 Allergy status to other drugs, medicaments and biological substances

== ENCOUNTER 2017-09-11 16:00 | Outpatient (RCR) | payer MEDICAID ==
[~2017-09-11 16:00] MED LIST changes: +IBUP-1022 PO
== END 2017-09-13 ==
LOC: M OUTALCOH 16:00
PROVIDERS: ATTEND Psychiatry & Neurology Psychiatry
DX: F12.20 Cannabis dependence, uncomplicated (principal); F15.20 Other stimulant dependence, uncomplicated; F14.10 Cocaine abuse, uncomplicated; F11.20 Opioid dependence, uncomplicated

== ENCOUNTER 2017-09-17 17:44 | Emergency (ER) | payer MEDICAID ==
[~2017-09-17] VITALS: Ht 157.5 cm; Wt 90.0 kg
[2017-09-17 17:44] VITALS: BP 111/68
[2017-09-17 20:16] LABS: BASO % 0.4 % (0.0-1.0); EOS # 0.3 10^3/uL (0.0-0.50); EOS % 3.2 % (0.0-3.0); IMMATURE GRANULOCYTE % 0.2 % (0-0); LYMPH # 2.7 10^3/uL (1.5-6.5); LYMPH % 25.1 % (24.0-44.0); MEAN CORPUSCULAR HEMOGLOBIN 26.2 pg (27.0-33.0); MEAN CORPUSCULAR HGB CONC 33.2 g/dl (32.0-36.5); MEAN CORPUSCULAR VOLUME 78.7 fl (80.0-96.0); MONO # 0.7 10^3/uL (0.0-0.8); MONO % 6.5 % (0.0-5.0); NEUTROPHILS # 6.8 10^3/uL (1.8-7.7); NEUTROPHILS % 64.6 % (36.0-66.0); PLATELET COUNT, AUTOMATED 336 10^3/uL (150-450); RED CELL DISTRIBUTION WIDTH 13.2 % (11.5-14.5); WHITE BLOOD COUNT 10.6 10^3/uL (4.0-10.0)
[2017-09-17 20:37] LABS: ANION GAP 7 MEQ/L (8-16); BLOOD UREA NITROGEN 10 MG/DL (7-18); CALCIUM LEVEL 8.8 MG/DL (8.5-10.1); CARBON DIOXIDE LEVEL 28 MEQ/L (21-32); CHLORIDE LEVEL 108 MEQ/L (98-107); CREATININE FOR GFR 0.92 MG/DL (0.55-1.02); GLUCOSE, FASTING 92 MG/DL (70-105); HCG, SERUM QUANTITATIVE < 1.0 MIU/ML; POTASSIUM SERUM 3.8 MEQ/L (3.5-5.1); SODIUM LEVEL 143 MEQ/L (136-145)
== END 2017-09-17 21:24 | disposition home or self-care (01) ==
LOC: M ED 17:44
DX: N92.0 Excessive and frequent menstruation with regular cycle (principal)

== ENCOUNTER 2018-03-06 12:43 | Emergency (ER) | payer MEDICAID, OTHER | END 2018-03-06 17:40 | disposition left against medical advice (07) | LOC: M ED 12:43 | DX: Z53.21 Procedure and treatment not carried out due to patient leaving prior to being seen by health care provider (principal) ==

== ENCOUNTER 2018-05-05 17:51 | Emergency (ER) | payer OTHER, MEDICAID | END 2018-05-05 20:23 | disposition home or self-care (01) | LOC: M ED 17:51 | DX: S46.812A Strain of other muscles, fascia and tendons at shoulder and upper arm level, left arm, initial encounter (principal); X58.XXXA Exposure to other specified factors, initial encounter; Y92.89 Other specified places as the place of occurrence of the external cause; R56.9 Unspecified convulsions; F99 Mental disorder, not otherwise specified; Z79.899 Other long term (current) drug therapy | CPT/HCPCS: 93971 ==

== ENCOUNTER → 2018-06-21 | Outpatient (REF) | payer OTHER, MEDICAID ==
[2018-06-21 14:13] LABS: AMPHETAMINES URINE REFLEX NEGATIVE (NEGATIVE); BARBITURATES URINE REFLEX NEGATIVE (NEGATIVE); BENZODIAZEPINES URINE REFLEX NEGATIVE (NEGATIVE); CANNABINOIDS URINE REFLEX NEGATIVE (NEGATIVE); COCAINE METABOLITE URINE REFLE NEGATIVE (NEGATIVE); METHADONE URINE REFLEX NEGATIVE (NEGATIVE); OPIATES URINE REFLEX NEGATIVE (NEGATIVE); PHENCYCLIDINE URINE REFLEX NEGATIVE (NEGATIVE)
== END ==
LOC: M LAB REF 13:05
DX: F12.10 Cannabis abuse, uncomplicated (principal)
CPT/HCPCS: 80307

== ENCOUNTER 2018-06-28 08:22 | Outpatient (RCR) | payer OTHER | END 2018-07-14 | LOC: M PT 08:22 | DX: Z51.89 Encounter for other specified aftercare (principal); M25.561 Pain in right knee; M25.562 Pain in left knee | CPT/HCPCS: 97110 ==

== ENCOUNTER 2018-11-15 22:58 | Emergency (ER) | payer MEDICAID, OTHER ==
[~2018-11-15] VITALS: Ht 157.5 cm; Wt 90.9 kg
[~2018-11-15 22:58] MED LIST changes: +NAPR-50 PO; +NAPR-885 PO; -NAPR500T PO; -NAPR500T3 PO; -VITA1CAP40 PO; +VITA50005 PO
[2018-11-15] MEDS ORDERED: ONDANSETRON 4 MG ORAL DISINTEGRATING TAB (Q0162 PER 1MG) PO ONE (23:30)
[2018-11-15 23:44] LABS: BASO # 0.1 10^3/uL (0.0-0.2); BASO % 0.3 % (0.0-1.0); EOS # 0.3 10^3/uL (0.0-0.50); EOS % 2.2 % (0.0-3.0); HEMATOCRIT 42.5 % (36.0-47.0); HEMOGLOBIN 13.7 g/dl (12.0-15.5); LYMPH % 13.3 % (24.0-44.0); MEAN CORPUSCULAR HEMOGLOBIN 26.2 pg (27.0-33.0); MEAN CORPUSCULAR HGB CONC 32.2 g/dl (32.0-36.5); MEAN CORPUSCULAR VOLUME 81.3 fl (80.0-96.0); MONO # 1.3 10^3/uL (0.0-0.8); MONO % 8.2 % (0.0-5.0); NEUTROPHILS # 11.6 10^3/uL (1.8-7.7); NEUTROPHILS % 75.5 % (36.0-66.0); PLATELET COUNT, AUTOMATED 358 10^3/uL (150-450); RED BLOOD COUNT 5.23 10^6/uL (4.00-5.40); WHITE BLOOD COUNT 15.4 10^3/uL (4.0-10.0)
[2018-11-15 23:47] LABS: APPEARANCE, URINE HAZY (CLEAR); BACTERIA, URINE AUTO NEGATIVE (NEGATIVE); BILIRUBIN, URINE AUTO NEGATIVE (NEGATIVE); BLOOD, URINE BLOOD NEGATIVE (NEGATIVE); COLOR, URINE YELLOW (YELLOW); GLUCOSE, URINE (UA) AUTO NEGATIVE (NEGATIVE); KETONE, URINE AUTO NEGATIVE (NEGATIVE); LEUKOCYTE ESTERASE, URINE AUTO NEGATIVE (NEGATIVE); MUCUS, URINE SMALL (NEGATIVE); NITRITE, URINE AUTO NEGATIVE (NEGATIVE); PROTEIN, URINE AUTO NEGATIVE (NEGATIVE); RBC, URINE AUTO 1 /HPF (0-3); SPECIFIC GRAVITY URINE AUTO 1.027 (1.002-1.035); SQUAMOUS EPITHELIAL CELL UR AU 6 /HPF (0-6); WBC, URINE AUTO 1 /HPF (0-3)
[2018-11-16 00:14] LABS: ALBUMIN 3.8 GM/DL (3.2-5.2); ALT/SGPT 26 U/L (12-78); BILIRUBIN,DIRECT 0.1 MG/DL (0.0-0.2); BILIRUBIN,TOTAL 0.4 MG/DL (0.2-1.0); BLOOD UREA NITROGEN 14 MG/DL (7-18); CALCIUM LEVEL 8.5 MG/DL (8.5-10.1); CARBON DIOXIDE LEVEL 30 MEQ/L (21-32); CHLORIDE LEVEL 104 MEQ/L (98-107); CREATININE FOR GFR 0.89 MG/DL (0.55-1.30); GLOMERULAR FILTRATION RATE > 60.0 (>60); GLUCOSE, FASTING 101 MG/DL (70-100); LIPASE 66 U/L (73-393); POTASSIUM SERUM 4.1 MEQ/L (3.5-5.1); SODIUM LEVEL 140 MEQ/L (136-145); TOTAL PROTEIN 7.3 GM/DL (6.4-8.2)
[2018-11-16 00:16] LABS: HCG, SERUM QUALITATIVE NEGATIVE (NEGATIVE)
[2018-11-16] MEDS ORDERED: ONDA4TAB6 PO (01:02)
[2018-11-16 01:04] VITALS: BP 116/59
== END 2018-11-16 01:09 | disposition home or self-care (01) ==
LOC: M ED 22:58
DX: R11.2 Nausea with vomiting, unspecified (principal); Z88.8 Allergy status to other drugs, medicaments and biological substances
CPT/HCPCS: 36415; 80048; 80076; 81001; 83690; 84703; 85025; 99283; Q0162

== ENCOUNTER → 2018-12-16 | Outpatient (CLI) | payer OTHER, MEDICAID ==
[~2018-12-16] MED LIST changes: +ONDA4TAB6 PO
--- NOTE | 2018-12-16 18:34 | REP ---
Clinical: Right ankle pain . Technique: AP, lateral, bilateral oblique views. Findings: No acute fracture or dislocation. Skeletal structures and joint spaces are intact and normal. Ankle mortise appears stable. No subcutaneous emphysema or radiodense foreign body. Impression: Normal right ankle radiograph series. Electronically Signed by Chava Sumner MD 12/16/2018 06:26 P
== END ==
LOC: M WUC 11:38
PROVIDERS: ATTEND Physician Assistant
DX: M25.571 Pain in right ankle and joints of right foot (principal)

== ENCOUNTER → 2019-04-03 | Outpatient (REF) | payer OTHER, MEDICAID ==
[~2019-04-03] MED LIST changes: +FLUO10CA8 PO; -NAPR-50 PO; +NAPR-837 PO; -NORC1TAB4 PO; +NORC1TAB7 PO
[2019-04-03 12:43] LABS: BASO % 0.3 % (0.0-1.0); EOS # 0.3 10^3/uL (0.0-0.50); EOS % 2.3 % (0.0-3.0); HEMATOCRIT 37.2 % (36.0-47.0); HEMOGLOBIN 12.2 g/dl (12.0-15.5); LYMPH # 2.5 10^3/uL (1.5-6.5); LYMPH % 21.5 % (24.0-44.0); MEAN CORPUSCULAR HEMOGLOBIN 26.3 pg (27.0-33.0); MEAN CORPUSCULAR HGB CONC 32.8 g/dl (32.0-36.5); MEAN CORPUSCULAR VOLUME 80.2 fl (80.0-96.0); MONO # 0.8 10^3/uL (0.0-0.8); MONO % 6.4 % (0.0-5.0); NEUTROPHILS # 8.2 10^3/uL (1.8-7.7); NEUTROPHILS % 69.1 % (36.0-66.0); PLATELET COUNT, AUTOMATED 325 10^3/uL (150-450); RED BLOOD COUNT 4.64 10^6/uL (4.00-5.40); WHITE BLOOD COUNT 11.8 10^3/uL (4.0-10.0)
[2019-04-03 13:16] LABS: ALBUMIN 3.3 GM/DL (3.2-5.2); ALT/SGPT 26 U/L (12-78); BILIRUBIN,TOTAL 0.4 MG/DL (0.2-1.0); BLOOD UREA NITROGEN 11 MG/DL (7-18); CALCIUM LEVEL 8.9 MG/DL (8.5-10.1); CARBON DIOXIDE LEVEL 26 MEQ/L (21-32); CHLORIDE LEVEL 108 MEQ/L (98-107); CHOLESTEROL LEVEL 149 MG/DL (<200); CREATININE FOR GFR 0.69 MG/DL (0.55-1.30); FREE T4 0.92 NG/DL (0.76-1.46); GLOMERULAR FILTRATION RATE > 60.0 (>60); GLUCOSE, FASTING 87 MG/DL (70-100); HDL CHOLESTEROL 50 MG/DL (>40); LDL CHOLESTEROL 82 MG/DL (<100); NON-HDL-C 99 MG/DL; SODIUM LEVEL 139 MEQ/L (136-145); TOTAL 25(OH) VITAMIN D 24.7 NG/ML (30.0-100.0); TOTAL PROTEIN 6.6 GM/DL (6.4-8.2); TRIGLYCERIDES LEVEL 85 MG/DL (<150)
[2019-04-03 13:59] LABS: HEMOGLOBIN A1c 5.1 %
== END ==
LOC: M LAB REF 11:34
PROVIDERS: ATTEND Nurse Practitioner Family
DX: Z13.9 Encounter for screening, unspecified (principal); F12.20 Cannabis dependence, uncomplicated

== ENCOUNTER 2019-04-05 17:57 | Emergency (ER) | payer MEDICAID, OTHER ==
[~2019-04-05] VITALS: Ht 157.5 cm; Wt 94.1 kg
[~2019-04-05 17:57] MED LIST changes: -FLUO10CA8 PO
[2019-04-05] MEDS ORDERED: FLUO10CA8 PO (18:07)
[2019-04-05 18:40] LABS: HEMATOCRIT 36.4 % (36.0-47.0); MEAN CORPUSCULAR HEMOGLOBIN 27.1 pg (27.0-33.0); MEAN CORPUSCULAR VOLUME 82.2 fl (80.0-96.0); PLATELET COUNT, AUTOMATED 304 10^3/uL (150-450); RED BLOOD COUNT 4.43 10^6/uL (4.00-5.40); WHITE BLOOD COUNT 12.3 10^3/uL (4.0-10.0)
[2019-04-05] MEDS ORDERED: ACETAMINOPHEN TAB 650MG DOSE (2X325MG) PO ONE (19:00)
[2019-04-05 19:22] LABS: BLOOD UREA NITROGEN 8 MG/DL (7-18); CALCIUM LEVEL 8.4 MG/DL (8.5-10.1); CARBON DIOXIDE LEVEL 27 MEQ/L (21-32); CHLORIDE LEVEL 109 MEQ/L (98-107); CREATININE FOR GFR 0.76 MG/DL (0.55-1.30); GLOMERULAR FILTRATION RATE > 60.0 (>60); GLUCOSE, FASTING 100 MG/DL (70-100); HCG, SERUM QUANTITATIVE 4876 MIU/ML; POTASSIUM SERUM 4.1 MEQ/L (3.5-5.1); SODIUM LEVEL 141 MEQ/L (136-145)
[2019-04-05 19:39] VITALS: BP 139/66
== END 2019-04-05 20:02 | disposition home or self-care (01) ==
LOC: M ED 17:57
DX: O26.891 Other specified pregnancy related conditions, first trimester (principal); R10.2 Pelvic and perineal pain; Z88.8 Allergy status to other drugs, medicaments and biological substances; Z3A.00 Weeks of gestation of pregnancy not specified

== ENCOUNTER 2019-04-16 22:44 | Emergency (ER) | payer MEDICAID, OTHER ==
[~2019-04-16] VITALS: Ht 157.5 cm; Wt 95.0 kg
[2019-04-16 22:44] VITALS: BP 127/60
[~2019-04-16 22:44] MED LIST changes: +FLUO10CA8 PO
== END 2019-04-17 02:31 | disposition left against medical advice (07) ==
LOC: M ED 22:44
DX: M54.9 Dorsalgia, unspecified (principal); Z53.21 Procedure and treatment not carried out due to patient leaving prior to being seen by health care provider

== ENCOUNTER 2019-04-25 18:21 | Emergency (ER) | payer MEDICAID, OTHER ==
[~2019-04-25] VITALS: Ht 157.5 cm; Wt 93.2 kg
[2019-04-25] MEDS ORDERED: MULTTAB20 PO (18:30)
[2019-04-25 20:18] LABS: BASO % 0.3 % (0.0-1.0); EOS # 0.2 10^3/uL (0.0-0.50); EOS % 1.3 % (0.0-3.0); HEMATOCRIT 37.4 % (36.0-47.0); HEMOGLOBIN 12.3 g/dl (12.0-15.5); LYMPH # 2.7 10^3/uL (1.5-6.5); LYMPH % 18.9 % (24.0-44.0); MEAN CORPUSCULAR HEMOGLOBIN 26.9 pg (27.0-33.0); MEAN CORPUSCULAR HGB CONC 32.9 g/dl (32.0-36.5); MEAN CORPUSCULAR VOLUME 81.8 fl (80.0-96.0); MONO # 0.6 10^3/uL (0.0-0.8); MONO % 4.4 % (0.0-5.0); NEUTROPHILS # 10.5 10^3/uL (1.8-7.7); NEUTROPHILS % 74.6 % (36.0-66.0); PLATELET COUNT, AUTOMATED 286 10^3/uL (150-450); RED BLOOD COUNT 4.57 10^6/uL (4.00-5.40)
[2019-04-25] MEDS ORDERED: ACETAMINOPHEN 325 MG TAB PO ONE (21:00)
[2019-04-25 21:02] LABS: ALBUMIN 3.6 GM/DL (3.2-5.2); ALT/SGPT 29 U/L (12-78); BILIRUBIN,DIRECT < 0.1 MG/DL (0.0-0.2); BILIRUBIN,TOTAL 0.2 MG/DL (0.2-1.0); BLOOD UREA NITROGEN 7 MG/DL (7-18); CALCIUM LEVEL 8.6 MG/DL (8.5-10.1); CARBON DIOXIDE LEVEL 25 MEQ/L (21-32); CHLORIDE LEVEL 106 MEQ/L (98-107); CREATININE FOR GFR 0.74 MG/DL (0.55-1.30); GLOMERULAR FILTRATION RATE > 60.0 (>60); GLUCOSE, FASTING 106 MG/DL (70-100); HCG, SERUM QUANTITATIVE 77789 MIU/ML; LIPASE 66 U/L (73-393); SODIUM LEVEL 138 MEQ/L (136-145); TOTAL PROTEIN 7.1 GM/DL (6.4-8.2)
[2019-04-25 22:12] VITALS: BP 134/78
--- NOTE | 2019-04-25 22:12 | REPVR ---
EXAM: US First Trimester, Transabdominal EXAM DATE/TIME: 04/25/2019 9:41 PM CLINICAL HISTORY: 23 years old, female; Pain; Other: Patient fell down stairs; Gestational age or lmp: 8w 1 d; ; Additional info: Trauma, right abd pain TECHNIQUE: Imaging protocol: Real-time transabdominal obstetrical ultrasound of the maternal pelvis and a first trimester , less than 14 weeks 0 days, with image documentation. COMPARISON: CT ABD/PEL W/IV CONTRAST ONLY 03/04/2017 8:45 PM FINDINGS: GESTATION: Gestation: Gestational sac within the uterus with pole. Heart rate: heartbeat of 175 beats per minute. BIOMETRY: [place]-Rump length: The crown-rump length this 16 mm suggesting an age of 8 weeks 1 day. The EDC is 12/04/2019. MATERNAL: Uterus: Unremarkable. Cervix: Unremarkable. Intraperitoneal: No intraperitoneal free fluid. IMPRESSION: Single live intrauterine fetus with an estimated age of 8 weeks 1 day. The EDC is 12/04/2019. Electronically signed by: Sourav Garcia On 04/25/2019 22:12:34 PM
== END 2019-04-25 22:18 | disposition home or self-care (01) ==
LOC: M ED 18:21
DX: O9A.211 Injury, poisoning and certain other consequences of external causes complicating pregnancy, first trimester (principal); R10.9 Unspecified abdominal pain; W10.8XXA Fall (on) (from) other stairs and steps, initial encounter; Y92.018 Other place in single-family (private) house as the place of occurrence of the external cause; Z88.8 Allergy status to other drugs, medicaments and biological substances; Z3A.08 8 weeks gestation of pregnancy

== ENCOUNTER → 2019-04-29 | Outpatient (REF) | payer OTHER, MEDICAID ==
[~2019-04-29] MED LIST changes: +MULTTAB20 PO
== END ==
LOC: M LAB REF 13:02
PROVIDERS: ATTEND Advanced Practice Midwife
DX: Z34.80 Encounter for supervision of other normal pregnancy, unspecified trimester (principal)

== ENCOUNTER → 2019-05-19 | Outpatient (CLI) | payer OTHER, MEDICAID ==
[2019-05-19 13:46] LABS: BASO # 0.1 10^3/uL (0.0-0.2); BASO % 0.5 % (0.0-1.0); EOS # 0.2 10^3/uL (0.0-0.50); EOS % 1.7 % (0.0-3.0); HEMOGLOBIN 11.1 g/dl (12.0-15.5); LYMPH % 19.7 % (24.0-44.0); MEAN CORPUSCULAR HEMOGLOBIN 26.2 pg (27.0-33.0); MEAN CORPUSCULAR HGB CONC 32.6 g/dl (32.0-36.5); MEAN CORPUSCULAR VOLUME 80.4 fl (80.0-96.0); MONO # 0.5 10^3/uL (0.0-0.8); MONO % 5.2 % (0.0-5.0); NEUTROPHILS # 7.2 10^3/uL (1.8-7.7); NEUTROPHILS % 72.5 % (36.0-66.0); PLATELET COUNT, AUTOMATED 254 10^3/uL (150-450); RED BLOOD COUNT 4.23 10^6/uL (4.00-5.40)
[2019-05-19 13:55] LABS: HEMOGLOBIN A1c 5.3 %
[2019-05-19 14:13] LABS: GLUCOSE CHALLENGE TEST 1 HOUR 95 MG/DL (LESS THAN 140)
[2019-05-19 14:39] LABS: RUBELLA IgG QUALITATIVE EQUIVOCAL (IMMUNE)
[2019-05-19 15:08] LABS: HEPATITIS C VIRUS ABY INDEX 0.1 INDEX (<0.8); HIV 1&2 SCREEN CENTAUR NEGATIVE (NEGATIVE)
[2019-05-19 15:18] LABS: CHLAMYDIA DNA AMPLIFICATION NEGATIVE (NEGATIVE); GC DNA AMPLIFICATION NEGATIVE (NEGATIVE)
== END ==
LOC: M LAB 11:43
PROVIDERS: ATTEND Advanced Practice Midwife
DX: Z36.89 Encounter for other specified antenatal screening (principal); Z3A.08 8 weeks gestation of pregnancy

== ENCOUNTER → 2019-05-27 | Outpatient (REF) | payer OTHER, MEDICAID | LOC: M LAB REF 12:39 | PROVIDERS: ATTEND Advanced Practice Midwife | DX: O99.211 Obesity complicating pregnancy, first trimester (principal) ==

== ENCOUNTER 2019-06-12 23:18 | Emergency (ER) | payer MEDICAID, OTHER ==
[~2019-06-12] VITALS: Ht 157.5 cm; Wt 92.0 kg
--- NOTE | 2019-06-13 00:49 | REPVR ---
EXAM: US , Limited EXAM DATE/TIME: 06/12/2019 12:04 AM CLINICAL HISTORY: 23 years old, female; complicated by abdominal or pelvic pain; Lower; Second trimester; Gestational age or lmp: 15w 3d; ; Additional info: Tr TECHNIQUE: Imaging protocol: Real-time ultrasound of the maternal uterus with image documentation. Exam focused on the clinical indication. COMPARISON: CT ABD/PEL W/IV CONTRAST ONLY 03/04/2017 8:45 PM FINDINGS: GESTATION: Gestation: Single live intrauterine fetus in a transverse lie with the head to the maternal left position. motion was identified. Heart rate: heart rate is 155 beats per minute. Presentation: Single live intrauterine fetus in a transverse lie with the head to the maternal left position. Placenta: Placenta is posterior without any evidence of abruption or previa. Amniotic fluid: Amniotic fluid appears within normal limits subjectively. MATERNAL: Cervix: Cervical length is 3.5 cm. Right adnexa: Uterus and bilateral adnexa are unremarkable. IMPRESSION: Single live intrauterine fetus in a transverse lie with the head to the maternal left position. No acute finding. Electronically signed by: Chuyita Aranda On 06/13/2019 00:49:34 AM
[2019-06-13 00:53] VITALS: BP 107/53
== END 2019-06-13 00:55 | disposition home or self-care (01) ==
LOC: M ED 23:18
DX: O9A.312 Physical abuse complicating pregnancy, second trimester (principal); Z3A.15 15 weeks gestation of pregnancy; Z79.899 Other long term (current) drug therapy; Z88.8 Allergy status to other drugs, medicaments and biological substances

== ENCOUNTER → 2019-06-24 | Outpatient (REF) | payer OTHER | LOC: M LAB REF 12:58 | PROVIDERS: ATTEND Advanced Practice Midwife | DX: O99.211 Obesity complicating pregnancy, first trimester (principal); Z3A.00 Weeks of gestation of pregnancy not specified ==

== ENCOUNTER → 2019-07-09 | Outpatient (CLI) | payer OTHER, SELFPAY ==
--- NOTE | 2019-07-10 02:38 | REP ---
Clinical: Anatomical evaluation. Comparison: 06/13/2019 . Findings: Examination demonstrates a single live intrauterine in breech presentation. motion is identified by technologist. Placenta is noted posterior and grade zero without evidence for placenta previa or abruption. Amniotic fluid volume is normal. Cervix measures 4.0 cm in length and appears closed. No evidence for nuchal cord. Gestational age by LMP 19 weeks 1 day with ETRESA 12/02/2019 . Gestational age by current measurements the 19 weeks 2-day with TERESA 12/01/2019 . FHR equals 153 beats per minute. Estimated weight 285 grams ( 54th percentile). Anatomical assessment demonstrates normal structures including cranium, choroid plexus, cavum, cerebellum/posterior fossa, nose/lips, diaphragm, stomach, cord insertion/three-vessel cord, bladder, spine, and extremities. Impression: 1. Single live intrauterine in breech presentation demonstrating appropriate interval growth. 2. Limited evaluation of the profile, lungs, heart/ventricular outflow tracts, and kidneys may warrant reevaluation and follow-up. Electronically Signed by Chava Sumner MD 07/10/2019 02:30 A
== END ==
LOC: M RAD 13:39
PROVIDERS: ATTEND Advanced Practice Midwife
DX: O32.1XX0 Maternal care for breech presentation, not applicable or unspecified (principal); Z36.89 Encounter for other specified antenatal screening; Z3A.19 19 weeks gestation of pregnancy

== ENCOUNTER → 2019-07-22 | Outpatient (REF) | payer OTHER | LOC: M LAB REF 10:00 | PROVIDERS: ATTEND Advanced Practice Midwife | DX: O99.212 Obesity complicating pregnancy, second trimester (principal); Z3A.00 Weeks of gestation of pregnancy not specified ==

== ENCOUNTER → 2019-08-06 | Outpatient (CLI) | payer MEDICAID, OTHER ==
[~2019-08-06] MED LIST changes: +FLAG500T PO
--- NOTE | 2019-08-06 14:12 | REP ---
OB ULTRASOUND: Real-time sonographic evaluation of gravid uterus performed. There is a single living intrauterine gestation. The estimated gestational age is 23 weeks 1 day, EDC 12/02/2019. Today's measurements indicate appropriate growth. BPD 53 mm = 22 weeks 0 days, 19th percentile HC 209 mm = 23 weeks 0 days, 48th percentile AC 184 mm = 23 weeks 2 days, 53rd percentile Femur length 40 mm = 22 weeks 6 days, 42nd percentile HC/AC ratio 1.14, within normal range. Estimated weight 553 grams, 42nd percentile. Cervix is closed and measures 3.1 cm in length. heart rate 155 beats per minute. Today's measurements indicate appropriate growth. SEEN/GROSSLY UNREMARKABLE Lateral ventricles Yes Posterior fossa Yes Upper lip Yes Four-chamber heart No LVOT No RVOT No Stomach Yes Cord insertion Yes Three vessel cord Yes Kidneys Yes Bladder Yes Spine Yes position: Breech. Placenta: Posterior and grade 0 with no previa or abruption. Amniotic fluid: Within normal limits. Electronically Signed by Vinay Espinosa MD 08/08/2019 12:47 A
== END ==
LOC: M RAD 10:24
PROVIDERS: ATTEND Advanced Practice Midwife
DX: O99.212 Obesity complicating pregnancy, second trimester (principal); Z3A.23 23 weeks gestation of pregnancy; E66.9 Obesity, unspecified

== ENCOUNTER 2019-08-15 21:10 | Outpatient (CLI) | payer MEDICAID ==
[~2019-08-15] VITALS: Ht 157.5 cm; Wt 95.5 kg
[~2019-08-15 21:10] MED LIST changes: -FLAG500T PO
[2019-08-15 21:31] VITALS: BP 110/68
--- NOTE | 2019-08-15 21:54 | IPNPDOC ---
Text Note Date of Service The patient was seen on 08/15/19. NOTE Outpatient 23yo TERESA 12/04/19. Presents @ 24w2d with complaints of wetness today while sitting x legged on the floor. Denies bleeding. Reports mild cramping Reassuring tracing No UC Scant fluid on pad Spec exam moderate cervical mucous, neg pool, neg valsalva, neg nitrazine, neg fern. Cervix visually LTC Will ambulate and reassess. Obtain GC/CT and urine culture. Darby Jaffe CNM Aug 15, 2019 21:54
[2019-08-15 23:06] VITALS: BP 98/47
[2019-08-15] MEDS ORDERED: FLAG500T PO (23:37)
[2019-08-15] MEDS ORDERED: metroNIDAZOLE (FLAGYL) 500 MG TAB PO ONE (23:45)
[2019-08-15 23:51] LABS: CHLAMYDIA DNA AMPLIFICATION NEGATIVE (NEGATIVE); GC DNA AMPLIFICATION NEGATIVE (NEGATIVE)
== END 2019-08-15 23:45 | disposition home or self-care (01) ==
LOC: M LDO 21:10
PROVIDERS: ATTEND Advanced Practice Midwife
DX: O26.892 Other specified pregnancy related conditions, second trimester (principal); Z3A.24 24 weeks gestation of pregnancy; N89.8 Other specified noninflammatory disorders of vagina

== ENCOUNTER → 2019-08-27 | Outpatient (CLI) | payer OTHER ==
[~2019-08-27] MED LIST changes: +FLAG500T PO
[2019-08-27 13:02] LABS: HEMATOCRIT 33.5 % (36.0-47.0); HEMOGLOBIN 10.8 g/dl (12.0-15.5); MEAN CORPUSCULAR HEMOGLOBIN 26.5 pg (27.0-33.0); MEAN CORPUSCULAR HGB CONC 32.2 g/dl (32.0-36.5); MEAN CORPUSCULAR VOLUME 82.1 fl (80.0-96.0); PLATELET COUNT, AUTOMATED 233 10^3/uL (150-450); RED BLOOD COUNT 4.08 10^6/uL (4.00-5.40)
--- NOTE | 2019-08-28 04:44 | REP ---
Clinical: Anatomical evaluation. Comparison: 08/06/2019 . Findings: Examination demonstrates a single live intrauterine in cephalic presentation. motion is identified by technologist. Placenta is noted posterior and grade I without evidence for placenta previa or abruption. Amniotic fluid volume is normal. Cervix measures 3.0 cm in length and appears closed. No evidence for nuchal cord. Gestational age by LMP 26 weeks 1 day with TERESA 12/02/2019 . Gestational age by current measurements 27 weeks 2 days with TERESA 11/24/2019 . FHR equals 160 beats per minute. Estimated weight 998 grams ( 64th percentile). Anatomical assessment demonstrates normal structures including cranium, choroid plexus, cavum, cerebellum/posterior fossa, lungs, four-chamber heart/ left ventricular outflow tract, diaphragm, stomach, cord insertion/three-vessel cord, kidneys/bladder, spine, and extremities. Impression: 1. Single live intrauterine in cephalic presentation demonstrating appropriate estimated weight for age. 2. In conjunction with prior examination anatomical assessment is complete and normal. Electronically Signed by Chava Sumner MD 08/28/2019 04:36 A
== END ==
LOC: M RAD 09:59
PROVIDERS: ATTEND Obstetrics & Gynecology
DX: Z34.82 Encounter for supervision of other normal pregnancy, second trimester (principal); Z3A.27 27 weeks gestation of pregnancy

== ENCOUNTER 2019-09-21 12:28 | Outpatient (CLI) | payer OTHER, MEDICAID ==
[~2019-09-21] VITALS: Ht 157.5 cm; Wt 99.0 kg
[~2019-09-21 12:28] MED LIST changes: +FLUO10CA15 PO; -FLUO10CA8 PO
[2019-09-21 13:02] VITALS: BP 132/71
[2019-09-21] MEDS ORDERED: MAPA500T2 PO (14:08)
[2019-09-21] MEDS ORDERED: TUMS500C PO (14:08)
== END 2019-09-21 14:00 | disposition home or self-care (01) ==
LOC: M LDO 12:28
PROVIDERS: ATTEND Specialist
DX: O36.8130 Decreased fetal movements, third trimester, not applicable or unspecified (principal); O26.853 Spotting complicating pregnancy, third trimester; O47.03 False labor before 37 completed weeks of gestation, third trimester; Z3A.29 29 weeks gestation of pregnancy

== ENCOUNTER → 2019-10-03 | Outpatient (REF) | payer OTHER, MEDICAID ==
[~2019-10-03] MED LIST changes: +MAPA500T2 PO; +TUMS500C PO
[2019-10-03 17:47] LABS: CHLAMYDIA DNA AMPLIFICATION NEGATIVE (NEGATIVE); GC DNA AMPLIFICATION NEGATIVE (NEGATIVE)
== END ==
LOC: M SFHCWAGY 13:58
PROVIDERS: ATTEND Advanced Practice Midwife
DX: Z34.83 Encounter for supervision of other normal pregnancy, third trimester (principal); Z86.19 Personal history of other infectious and parasitic diseases

== ENCOUNTER 2019-10-10 13:24 | Outpatient (CLI) | payer MEDICAID, OTHER ==
[~2019-10-10] VITALS: Ht 157.5 cm; Wt 101.6 kg
[2019-10-10 13:40] VITALS: BP 116/70
[2019-10-10 14:30] LABS: AMORPHOUS SEDIMENT SMALL (NEGATIVE); APPEARANCE, URINE TURBID (CLEAR); BACTERIA, URINE AUTO 1+ (NEGATIVE); BILIRUBIN, URINE AUTO NEGATIVE (NEGATIVE); BLOOD, URINE BLOOD NEGATIVE (NEGATIVE); COLOR, URINE YELLOW (YELLOW); GLUCOSE, URINE (UA) AUTO NEGATIVE (NEGATIVE); KETONE, URINE AUTO NEGATIVE (NEGATIVE); LEUKOCYTE ESTERASE, URINE AUTO TRACE (NEGATIVE); NITRITE, URINE AUTO NEGATIVE (NEGATIVE); PROTEIN, URINE AUTO NEGATIVE (NEGATIVE); RBC, URINE AUTO 4 /HPF (0-3); SPECIFIC GRAVITY URINE AUTO 1.018 (1.002-1.035); SQUAMOUS EPITHELIAL CELL UR AU 3 /HPF (0-6); UROBILINOGEN, URINE AUTO 0.2 mg/dL (0.0-2.0); WBC, URINE AUTO 9 /HPF (0-3)
[2019-10-10] MEDS ORDERED: MACR100C43 PO (14:55)
[2019-10-10] MEDS ORDERED: NITROFURANTOIN (MACROBID) 100 MG CAP PO ONE (15:00)
[2019-10-10 15:06] VITALS: BP 123/63
[2019-10-10] MEDS ORDERED: CALCIUM CARBONATE 500 MG CHEW U/D PO ONE (15:45)
[2019-10-10] MEDS ORDERED: BETAMETHASONE SOLUSPAN 6MG/ML INJ 5ML (J0702) IM ONE (16:00)
[2019-10-10 16:12] VITALS: BP 132/69
== END 2019-10-10 16:25 | disposition home or self-care (01) ==
LOC: M LDO 13:24
PROVIDERS: ATTEND Obstetrics & Gynecology
DX: O36.8130 Decreased fetal movements, third trimester, not applicable or unspecified (principal); O26.893 Other specified pregnancy related conditions, third trimester; R10.2 Pelvic and perineal pain; O23.43 Unspecified infection of urinary tract in pregnancy, third trimester; Z3A.32 32 weeks gestation of pregnancy
CPT/HCPCS: 59025; 76815; 81001; 82731; 87086; J0702

== ENCOUNTER 2019-10-15 00:04 | Outpatient (CLI) | payer OTHER ==
[~2019-10-15] VITALS: Ht 157.5 cm; Wt 103.3 kg
[~2019-10-15 00:04] MED LIST changes: +MACR100C43 PO
[2019-10-15 00:23] VITALS: BP 129/66
[2019-10-15] MEDS ORDERED: ACETAMINOPHEN 500 MG TAB PO ONE (01:30)
== END 2019-10-15 01:30 | disposition home or self-care (01) ==
LOC: M LDO 00:04 → EEVIPCON 00:04 → M LDO 01:30
PROVIDERS: ATTEND Obstetrics & Gynecology
DX: O26.893 Other specified pregnancy related conditions, third trimester (principal); M54.5 Low back pain; N89.8 Other specified noninflammatory disorders of vagina; O23.43 Unspecified infection of urinary tract in pregnancy, third trimester; O47.03 False labor before 37 completed weeks of gestation, third trimester; Z3A.33 33 weeks gestation of pregnancy

== ENCOUNTER → 2019-10-23 | Outpatient (REF) | payer OTHER, MEDICAID | LOC: M SFHCWAGY 16:50 | PROVIDERS: ATTEND Advanced Practice Midwife | DX: Z36.85 Encounter for antenatal screening for Streptococcus B (principal) ==

== ENCOUNTER 2019-10-24 19:47 | Outpatient (CLI) | payer MEDICAID, OTHER ==
[~2019-10-24] VITALS: Ht 157.5 cm; Wt 103.1 kg
[2019-10-24 20:06] VITALS: BP 131/72
--- NOTE | 2019-10-24 20:46 | IPNPDOC ---
Text Note Date of Service The patient was seen on 10/24/19. NOTE Outpatient 24yo G1 TERESA 12/03/2019 presents @ 34w2d with complaints of contractions. Pt was seen in the office today with complaints of loss of bloody mucous. Visual cervical exam at that time closed/FT, long, -3. Denies LOF or further bleeding. Fetus is active. Pt reports the pain is along her upper abdomen, radiating down the right side. Denies pelvic pressure or pain. Cat I tracing. Mild uterine irritability SVE FT//-3. Will ambulate and reassess. VS,Fishbone, I+O VS, Fishbone, I+O Vital Signs Date Time Temp Pulse Resp B/P (MAP) Pulse Ox O2 Delivery O2 Flow Rate FiO2 10/24/19 20:06 97.9 88 18 131/72 (91) Darby Jaffe CNM Oct 24, 2019 20:46
[2019-10-24] MEDS ORDERED: hydrOXYzine 50 MG TAB PO SCH (21:00)
[2019-10-24 21:42] LABS: APPEARANCE, URINE HAZY (CLEAR); BACTERIA, URINE AUTO NEGATIVE (NEGATIVE); BILIRUBIN, URINE AUTO NEGATIVE (NEGATIVE); BLOOD, URINE BLOOD NEGATIVE (NEGATIVE); COLOR, URINE YELLOW (YELLOW); GLUCOSE, URINE (UA) AUTO NEGATIVE (NEGATIVE); KETONE, URINE AUTO NEGATIVE (NEGATIVE); LEUKOCYTE ESTERASE, URINE AUTO NEGATIVE (NEGATIVE); MUCUS, URINE SMALL (NEGATIVE); NITRITE, URINE AUTO NEGATIVE (NEGATIVE); PROTEIN, URINE AUTO NEGATIVE (NEGATIVE); RBC, URINE AUTO 0 /HPF (0-3); SPECIFIC GRAVITY URINE AUTO 1.025 (1.002-1.035); SQUAMOUS EPITHELIAL CELL UR AU 1 /HPF (0-6); UROBILINOGEN, URINE AUTO 0.2 mg/dL (0.0-2.0); WBC, URINE AUTO 1 /HPF (0-3)
--- NOTE | 2019-10-24 22:22 | IPNPDOC ---
Text Note Date of Service The patient was seen on 10/24/19. NOTE Outpatient Has been ambulating. UC difficult to trace. Cat I tracing SVE /-3, posterior.No show on glove. IV hydration and reassess. VS,Fishbone, I+O VS, Fishbone, I+O Vital Signs Date Time Temp Pulse Resp B/P (MAP) Pulse Ox O2 Delivery O2 Flow Rate FiO2 10/24/19 20:06 97.9 88 18 131/72 (91) Darby Jaffe CNM Oct 24, 2019 22:22
[2019-10-24] MEDS ORDERED: LR 1,000 ML IV SCH (22:30)
[2019-10-24] MEDS ORDERED: LACTATED RINGER'S 1000 ML IV ONE (22:30)
[2019-10-24 22:51] VITALS: BP 140/67
--- NOTE | 2019-10-25 00:32 | IPNPDOC ---
Text Note Date of Service The patient was seen on 10/25/19. NOTE Continues to vague reports of UC. UC are difficult to trace, irregular Cat I tracing SVE 250/-3, posterior Observe overnight. Consider admission with further dilation VS,Fishbone, I+O VS, Fishbone, I+O Vital Signs Date Time Temp Pulse Resp B/P (MAP) Pulse Ox O2 Delivery O2 Flow Rate FiO2 10/24/19 20:06 97.9 88 18 131/72 (91) I&O- Last 24 Hours up to 6 AM 10/25/19 06:00 Intake Total 500 ml Balance 500 ml Darby Jaffe CNM Oct 25, 2019 00:32
[2019-10-25 03:36] VITALS: BP 144/76
[2019-10-25 06:53] VITALS: BP 117/61
== END 2019-10-25 08:30 | disposition home or self-care (01) ==
LOC: M LDO 19:47
PROVIDERS: ATTEND Advanced Practice Midwife
DX: O47.03 False labor before 37 completed weeks of gestation, third trimester (principal); Z3A.34 34 weeks gestation of pregnancy

== ENCOUNTER 2019-10-25 18:17 | Outpatient (CLI) | payer OTHER ==
[~2019-10-25] VITALS: Ht 157.5 cm; Wt 103.4 kg
[2019-10-25 18:33] VITALS: BP 132/74
--- NOTE | 2019-10-25 20:57 | IPN ---
DATE: 10/25/2019 24-year-old Lili at 34 3/7 weeks gestation presents with a small gush fluid after getting out of the shower this evening. She continues to leak small amounts when she moves, she does not leak when she is resting. She has rare contractions. She was discharged earlier today from the hospital after being here for contractions. She denies intercourse. OBJECTIVE: Afebrile. Blood pressure 134/74, pulse 84. She is in no apparent distress. Head and neck exam: Normal. Lungs: Clear. Heart: Regular rate and rhythm. Abdomen: Nontender. Gravid. heart tones are category 1. Sterile speculum exam: Negative fern. Negative Nitrazine. Negative pool. Cervix unchanged and diltation 2 cm, 50%, -2. Extremities: Nontender. ASSESSMENT: 24-year-old Lili, 34 3/7 weeks gestation with no evidence of ruptured membranes. PLAN: The patient will be discharged home. The patient is to avoid intercourse. She is to return if leakage resumes and becomes evident.
== END 2019-10-25 19:06 | disposition home or self-care (01) ==
LOC: M LDO 18:17
PROVIDERS: ATTEND Specialist
DX: O47.03 False labor before 37 completed weeks of gestation, third trimester (principal); Z3A.34 34 weeks gestation of pregnancy

== ENCOUNTER 2019-10-26 12:42 | Outpatient (CLI) | payer OTHER ==
[~2019-10-26] VITALS: Ht 157.5 cm; Wt 140.0 kg
[2019-10-26 12:56] VITALS: BP 122/58
--- NOTE | 2019-10-27 06:16 | IPN ---
DATE: 10/26/2019 24-year-old, (G) 1, at 34 and 4/7 weeks gestation who presents with intermittent contractions that have become stronger. She feels it starts in her upper abdomen and her belly gets tight. She is not leaking fluid currently. She denies bleeding. There is good movement. The patient was seen the prior day for leaking fluid and was ruled out for ruptured membranes. She has already completed a course of steroids for premature contractions. OBJECTIVE: Blood pressure is 122/58. Pulse 114. Temperature 97.9. She is in no apparent distress. Head and Neck Exam: Normal. Lungs: Clear. Heart: Regular rate and rhythm. Abdomen: Nontender. Gravid. heart tones category 1. Sterile Vaginal Exam: 2 cm, 50%, -2, posterior, moderate, vertex. Contractions irregular. ASSESSMENT: 24-year-old, G1, at 34 and 4/7 weeks gestation with contractions, but not in labor. PLAN: The patient will be discharged home on 10/26/2019. Recommend rest, Tylenol and avoiding intercourse. Followup in the office as scheduled.
== END 2019-10-26 13:47 | disposition home or self-care (01) ==
LOC: M LDO 12:42
PROVIDERS: ATTEND Specialist
DX: O47.03 False labor before 37 completed weeks of gestation, third trimester (principal); Z3A.34 34 weeks gestation of pregnancy

== ENCOUNTER 2019-11-09 13:03 | Outpatient (CLI) | payer MEDICAID, OTHER ==
[~2019-11-09] VITALS: Ht 157.5 cm; Wt 107.7 kg
[2019-11-09 13:19] VITALS: BP 120/71
[2019-11-09 13:34] VITALS: BP 123/58
--- NOTE | 2019-11-10 19:59 | IPN ---
DATE: 11/09/2019 24-year-old 1 at 36-4/7 weeks gestation presents after slipping and falling in the shower today, she hit her belly. She felt dizzy before she fell. She has had some elevated blood pressures at home. She is also concerned about swelling in her legs and feet. OBJECTIVE: Blood pressure is 124/74, pulse 75. No apparent distress. Head and neck exam: Normal. Lungs: Clear. Heart: Regular rate and rhythm. Abdomen: Nontender, gravid. heart tones: Category 1. Extremities: Nontender with 2+ lower extremity edema. ASSESSMENT: 24-year-old 1 at 36-4/7 weeks status post a fall on her abdomen. Patient was monitored for an extended period of time. All testing was reassuring. Multiple blood pressure readings were normal. Patient is deemed stable and discharged home. She will followup in the office on 11/13/2019.
== END 2019-11-09 14:26 | disposition home or self-care (01) ==
LOC: M LDO 13:03
PROVIDERS: ATTEND Specialist
DX: O9A.213 Injury, poisoning and certain other consequences of external causes complicating pregnancy, third trimester (principal); W01.0XXA Fall on same level from slipping, tripping and stumbling without subsequent striking against object, initial encounter; Y92.012 Bathroom of single-family (private) house as the place of occurrence of the external cause; Y93.E1 Activity, personal bathing and showering; Y99.9 Unspecified external cause status; Z3A.36 36 weeks gestation of pregnancy; Z88.8 Allergy status to other drugs, medicaments and biological substances

== ENCOUNTER → 2019-11-14 | Outpatient (REF) | payer OTHER, MEDICAID ==
[~2019-11-14] MED LIST changes: +VIST25CA PO
== END ==
LOC: M SFHCWAGY 12:58
PROVIDERS: ATTEND Advanced Practice Midwife
DX: O26.899 Other specified pregnancy related conditions, unspecified trimester (principal)

== ENCOUNTER 2019-11-20 07:16 | Inpatient (IN) | payer MEDICAID, OTHER ==
[~2019-11-20] VITALS: Ht 157.5 cm; Wt 108.0 kg
[2019-11-20] VITALS (42 sets, daily range): BP systolic 107–171; BP diastolic 53–82
[~2019-11-20 07:16] MED LIST changes: -FLUO20CA19 PO; +FLUO20CA22 PO
[2019-11-20] MEDS ORDERED: LACTATED RINGER'S 1000 ML IV STA (07:45)
[2019-11-20] MEDS ORDERED: LR 1,000 ML IV SCH (07:45)
[2019-11-20 08:13] LABS: HEMATOCRIT 36.2 % (36.0-47.0); HEMOGLOBIN 11.3 g/dl (12.0-15.5); MEAN CORPUSCULAR HEMOGLOBIN 23.5 pg (27.0-33.0); MEAN CORPUSCULAR HGB CONC 31.2 g/dl (32.0-36.5); MEAN CORPUSCULAR VOLUME 75.3 fl (80.0-96.0); PLATELET COUNT, AUTOMATED 294 10^3/uL (150-450); RED BLOOD COUNT 4.81 10^6/uL (4.00-5.40)
[2019-11-20] MEDS ORDERED: FENTANYL 2MCG/ML ROPIVACAINE 0.2% IN 0.9% NACL 100ML IVBAG As Ordered ONE (08:59)
[2019-11-20] MEDS ORDERED: ONDANSETRON 4MG/2ML VIAL (J2405) IV PRN ×2 (10:00→15:30)
[2019-11-20] MEDS ORDERED: diphenhydrAMINE INJ 50MG/ML VIAL (J1200) IV PRN (10:00)
[2019-11-20] MEDS ORDERED: LACTATED RINGER'S 1000 ML IV PRN (10:00)
[2019-11-20] MEDS ORDERED: EPIDURAL/PCA KEYS XX PRN (10:00)
[2019-11-20] MEDS ORDERED: REFRIGERATOR IV KEYS XX PRN (10:00)
[2019-11-20] MEDS ORDERED: EPIDURAL COMMENT XX SCH (10:00)
[2019-11-20] MEDS ORDERED: FENTANYL/ROPIVACAINE/NACL BAG 100 ML EPIDURAL SCH (10:00)
[2019-11-20] MEDS ORDERED: NALOXONE INJ 0.4 MG/1 ML VIAL (J2310) IV PRN (10:00)
[2019-11-20] MEDS: ePHEDrine SULFATE 25 MG/5 ML(5MG/ML) SYRINGE IV PRN ×2 (11:18→11:30)
[2019-11-20] MEDS ORDERED: OXYTOCIN 30 UNITS IN 0.9% NaCl 500ML IV BAG (J2590) As Ordered ONE (12:47)
[2019-11-20] MEDS ORDERED: OXYTOCIN DRIP 30 UNITS in IV 1 EA IV SCH (13:00)
[2019-11-20] MEDS ORDERED: DIBUCAINE 1% OINTMENT 30GM TOP PRN (15:30)
[2019-11-20] MEDS ORDERED: IBUPROFEN 600 MG TAB PO PRN (15:30)
[2019-11-20] MEDS ORDERED: ACETAMINOPHEN TAB 650MG DOSE (2X325MG) PO PRN (15:30)
[2019-11-20] MEDS ORDERED: OXYTOCIN DRIP 30 UNITS in IV 1 EA IV ONE (15:30)
[2019-11-20] MEDS ORDERED: METHYLERGONOVINE MALEATE 0.2 MG TAB PO PRN (15:30)
[2019-11-20] MEDS ORDERED: DOCUSATE SODIUM 100 MG CAP PO PRN (15:30)
[2019-11-20] MEDS ORDERED: IBUPROFEN 800 MG TAB PO PRN (15:30)
[2019-11-20] MEDS ORDERED: MEASLES,MUMPS,RUBELLA VACCINE INJ (MMR-II) (90707) SC SCH (15:30)
[2019-11-20] MEDS ORDERED: RHOGAM 300 MCG (1500 IU) INJ (J2790) IM SCH (15:30)
--- NOTE | 2019-11-20 17:51 | HPE ---
DATE OF ADMISSION: 11/20/2019 A 24-year-old (G) 3, para (P) 0-0-2-0 female at 38-1/7 weeks gestation by last menstrual period (LMP), consistent with eight-week ultrasound, estimated date of confinement (EDC) of 12/03/2019, who presents with leakage of fluid per vagina on the morning of admission. Her contractions began to increase at that point and she continued to leak fluid. COURSE: The patient initiated care at eight weeks gestation with [facility]. She had no specific complications during the . She had multiple evaluations in triage for complaints of labor or contractions. PAST MEDICAL HISTORY: 1. Autism. 2. 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 3. Anxiety and depression. 4. History of trichomonas. 5. History of methicillin-resistant Staphylococcus aureus (MRSA) infection on her face. PAST SURGICAL HISTORY: 1. Tonsillectomy. 2. Cholecystectomy. 3. Dilation and curettage procedure. ALLERGIES: 1. LAMOTRIGINE. 2. PERMETHRIN. SOCIAL HISTORY: The father of the baby is not involved. The patient lives in [place]. Denies current drug use. FAMILY HISTORY: Noncontributory. PHYSICAL EXAMINATION: Blood pressure 124/74, pulse 84. She appears uncomfortable. HEAD AND NECK: Normal. LUNGS: Clear. HEART: Regular rate and rhythm. ABDOMEN: Nontender, gravid. heart tones category 1, contractions every 2-3 minutes. STERILE VAGINAL EXAMINATION: Grossly ruptured, 4 cm, meconium stained fluid. EXTREMITIES: Nontender. LABORATORY DATA: GBS negative. ASSESSMENT: A 24-year-old (G) 3, para (P) 0 at 38-1/7 weeks gestation with rupture of membranes in active labor. PLAN: The patient is admitted on 11/20/2019. Anticipate vaginal delivery.
--- NOTE | 2019-11-20 17:59 | DN ---
DATE: 11/20/2019 PREDELIVERY DIAGNOSES: 38 weeks, ruptured membranes, labor. POSTDELIVERY DIAGNOSES: 38 weeks, ruptured membranes, labor. PROCEDURE: Spontaneous vaginal delivery. [employer] DEPARTMENT SUPERVISOR: Dr. Mario Lunsford ANESTHESIA: Epidural. ESTIMATED BLOOD LOSS: 300 mL. FINDINGS: 6 pound 11 ounce male . scores of 8 and 9. Meconium present. DELIVERY SUMMARY: After a 20 minute second stage, the patient had spontaneous delivery of a 6 pound 11 ounce male infant, scores 8 and 9 under epidural anesthesia. There was no nuchal cord. The shoulders delivered with ease. Moderate meconium was present. The infant was handed to the mother and cried immediately. The cord was doubly clamped and cut. The placenta delivered spontaneously and appeared to be intact. The patient received IV Pitocin immediately after delivery of the placenta. Small second degree perineal laceration was repaired with 2-0 chromic in the usual fashion. Sponge counts were correct.
[2019-11-20] MEDS: ACETAMINOPHEN 500 MG TAB PO PRN (18:58)
[2019-11-21 05:34] VITALS: BP 114/59
[2019-11-21] MEDS: ACETAMINOPHEN 500 MG TAB PO PRN (06:23)
[2019-11-21] MEDS ORDERED: INFLUENZA QUADRIVALENT PF VACCINE 0.5ML SYRINGE (90686) IM ONE (09:00)
[2019-11-21] MEDS: PRENATAL VITAMINS CHEWABLE TABLET PO SCH (09:33)
[2019-11-21 18:10] VITALS: BP 137/72
[2019-11-22 06:15] VITALS: BP 135/74
[2019-11-22] MEDS: PRENATAL VITAMINS CHEWABLE TABLET PO SCH (08:07)
[2019-11-22] MEDS ORDERED: INFLUENZA QUADRIVALENT PF VACCINE 0.5ML SYRINGE (90686) IM ONE (09:00)
== END 2019-11-22 10:30 | disposition home or self-care (01) | DRG 560 ==
LOC: M LDO 07:16 → M LDI 07:49 → M OBS 17:52
PROVIDERS: ADMIT Specialist; ATTEND Specialist
PROC: 10E0XZZ Delivery of Products of Conception, External Approach (ICD-10-PCS; principal; 2019-11-20)
PROC: 0KQM0ZZ Repair Perineum Muscle, Open Approach (ICD-10-PCS; 2019-11-20)
DX: O77.0 Labor and delivery complicated by meconium in amniotic fluid (principal); Z3A.38 38 weeks gestation of pregnancy; Z37.0 Single live birth; O70.1 Second degree perineal laceration during delivery

== ENCOUNTER 2020-09-29 12:46 | Emergency (ER) | payer MEDICAID, OTHER ==
[~2020-09-29] VITALS: Ht 157.5 cm; Wt 99.7 kg
[~2020-09-29 12:46] MED LIST changes: -ATOM40CA PO; +ATOM40CA16 PO; +CYCL-707 PO; -CYCL10TA PO; -FLUO10CA15 PO; +FLUO10CA16 PO
[2020-09-29] MEDS ORDERED: ATOM25CA7 PO (12:56)
[2020-09-29] MEDS ORDERED: SERT50TA29 PO (12:56)
--- NOTE | 2020-09-29 14:00 | REP ---
INDICATION: CP. COMPARISON: Comparison chest x-ray April 25, 2017. TECHNIQUE: Portable upright AP chest radiograph. FINDINGS: The lungs are well inflated and free of infiltrate. Pleural angles are sharp. Heart size is normal. Pulmonary vasculature is not increased. IMPRESSION: No active disease. <Electronically signed by Jeramie Hamilton > 09/29/20 [id number]
[2020-09-29 14:39] VITALS: O2SAT 100
[2020-09-29 14:55] LABS: BASO # 0.1 10^3/uL (0.0-0.2); BASO % 0.5 % (0.0-1.0); EOS # 0.3 10^3/uL (0.0-0.5); EOS % 2.7 % (0.0-3.0); HEMATOCRIT 39.3 % (36.0-47.0); LYMPH # 3.2 10^3/uL (1.5-5.0); LYMPH % 28.8 % (24.0-44.0); MEAN CORPUSCULAR HEMOGLOBIN 23.9 pg (27.0-33.0); MEAN CORPUSCULAR HGB CONC 30.5 g/dl (32.0-36.5); MEAN CORPUSCULAR VOLUME 78.1 fl (80.0-96.0); MONO # 0.7 10^3/uL (0.0-0.8); NEUTROPHILS # 6.8 10^3/uL (1.5-8.5); NEUTROPHILS % 61.5 % (36.0-66.0); PLATELET COUNT, AUTOMATED 338 10^3/uL (150-450); RED BLOOD COUNT 5.03 10^6/uL (4.00-5.40); WHITE BLOOD COUNT 11.1 10^3/uL (4.0-10.0)
[2020-09-29 15:16] LABS: HCG, SERUM QUALITATIVE NEGATIVE (NEGATIVE)
[2020-09-29 15:20] LABS: ALBUMIN 3.6 GM/DL (3.2-5.2); ALT/SGPT 28 U/L (12-78); BILIRUBIN,DIRECT < 0.1 MG/DL (0.0-0.2); BILIRUBIN,TOTAL 0.2 MG/DL (0.2-1.0); BLOOD UREA NITROGEN 13 MG/DL (7-18); CALCIUM LEVEL 9.3 MG/DL (8.5-10.1); CARBON DIOXIDE LEVEL 31 MEQ/L (21-32); CHLORIDE LEVEL 108 MEQ/L (98-107); CK-MB VALUE MASS < 1.0 NG/ML (<3.6); CPK CREATINE PHOSPHOKINASE 84 U/L (26-192); CREATININE FOR GFR 0.81 MG/DL (0.55-1.30); GLOMERULAR FILTRATION RATE > 60.0 (>60); GLUCOSE, FASTING 73 MG/DL (70-100); LIPASE 70 U/L (73-393); MB/CK RELATIVE INDEX 1.19 (< OR =4); POTASSIUM SERUM 3.8 MEQ/L (3.5-5.1); SODIUM LEVEL 142 MEQ/L (136-145); TOTAL PROTEIN 6.9 GM/DL (6.4-8.2); TROPONIN I < 0.02 NG/ML (< 0.10)
[2020-09-29] MEDS ORDERED: PROAAER10 INH (15:55)
[2020-09-29 16:01] VITALS: BP 152/74
--- NOTE | 2020-09-30 13:22 | ECGEPIP ---
[facility] - ED Test Date: 2020-09-29 Pat Name: DILCIA MARIN Department: Room: - Gender: Female Connection Worker: : 1995 Requested By: AMA Andres PA-C Order Number: [id number] Reading MD: Tal Mike Measurements Intervals [place] Rate: 61 P: 56 FL: 154 QRS: 53 QRSD: 98 T: 41 QT: 388 QTc: 392 Interpretive Statements SINUS RHYTHM WITH SINUS ARRHYTHMIA INCOMPLETE RIGHT BUNDLE BRANCH BLOCK SIMILAR TO 05/22/17 Electronically Signed on 09-30-2020 13:21:44 EST by Tal Mike
== END 2020-09-29 16:07 | disposition home or self-care (01) ==
LOC: M ED 12:46
DX: J06.9 Acute upper respiratory infection, unspecified (principal); B34.9 Viral infection, unspecified; R19.7 Diarrhea, unspecified; R94.31 Abnormal electrocardiogram [ECG] [EKG]; J45.909 Unspecified asthma, uncomplicated; R07.89 Other chest pain; Z20.828 Contact with and (suspected) exposure to other viral communicable diseases; F31.9 Bipolar disorder, unspecified; Z79.51 Long term (current) use of inhaled steroids; Z79.899 Other long term (current) drug therapy
CPT/HCPCS: 36415; 71045; 80048; 80076; 82550; 82553; 83690; 84703; 85025; 85379; 93005; 99284; U0003

== ENCOUNTER → 2022-02-02 | Outpatient (REF) ==
[~2022-02-02] MED LIST changes: +ATOM25CA7 PO; -FLUO10CA16 PO; +FLUO10CA18 PO; +PROAAER10 INH; +SERT50TA29 PO
== END ==
LOC: M EMP 15:38
PROVIDERS: ATTEND Family Medicine
DX: Z11.52 Encounter for screening for COVID-19 (principal)

== ENCOUNTER 2022-10-03 09:27 | Emergency (ER) | payer MEDICAID, OTHER ==
[~2022-10-03] VITALS: Ht 157.5 cm; Wt 96.3 kg
[~2022-10-03 09:27] MED LIST changes: +ETON68IM SC; -NEXP1IMP SC
[2022-10-03] MEDS ORDERED: ONDANSETRON 4MG ORAL DISINTEGRATING TAB PO ONE (11:50)
[2022-10-03] MEDS ORDERED: ONDA4TAB6 PO (12:02)
[2022-10-03 12:03] VITALS: BP 128/71
== END 2022-10-03 12:10 | disposition home or self-care (01) ==
LOC: M ED 09:27
DX: J02.9 Acute pharyngitis, unspecified (principal); B34.8 Other viral infections of unspecified site; K21.9 Gastro-esophageal reflux disease without esophagitis; F41.9 Anxiety disorder, unspecified; F32.A Depression, unspecified; Z88.8 Allergy status to other drugs, medicaments and biological substances

== ENCOUNTER → 2023-01-02 | Outpatient (CLI) | payer OTHER, MEDICAID, MEDICARE ==
[2023-01-02 13:58] LABS: BASO # 0.1 10^3/uL (0.0-0.2); BASO % 0.5 % (0.0-1.0); EOS # 0.4 10^3/uL (0.0-0.5); EOS % 3.9 % (0.0-3.0); HEMOGLOBIN 11.9 g/dl (12.0-15.5); LYMPH # 2.8 10^3/uL (1.5-5.0); LYMPH % 27.2 % (24.0-44.0); MEAN CORPUSCULAR HEMOGLOBIN 24.6 pg (27.0-33.0); MEAN CORPUSCULAR HGB CONC 30.5 g/dl (32.0-36.5); MEAN CORPUSCULAR VOLUME 80.6 fl (80.0-96.0); MONO # 0.6 10^3/uL (0.0-0.8); MONO % 5.4 % (2.0-8.0); NEUTROPHILS # 6.4 10^3/uL (1.5-8.5); NEUTROPHILS % 62.6 % (36.0-66.0); PLATELET COUNT, AUTOMATED 339 10^3/uL (150-450); RED BLOOD COUNT 4.84 10^6/uL (4.00-5.40); WHITE BLOOD COUNT 10.3 10^3/uL (4.0-10.0)
[2023-01-02 14:20] LABS: ALBUMIN 3.8 G/DL (3.2-5.2); ALKALINE PHOSPHATASE 79 U/L (46-116); ALT/SGPT 18 U/L (7.0-40); AST/SGOT 13 U/L (<34); BILIRUBIN,TOTAL 0.5 MG/DL (0.3-1.2); BLOOD UREA NITROGEN 13 MG/DL (9-23); CALCIUM LEVEL 9.1 MG/DL (8.5-10.1); CARBON DIOXIDE LEVEL 30 MMOL/L (20-31); CHLORIDE LEVEL 105 MMOL/L (98-107); CHOLESTEROL LEVEL 152 MG/DL (<200); CHOLESTEROL RISK RATIO 3.08 (<5); CREATININE FOR GFR 0.81 MG/DL (0.55-1.30); GLOMERULAR FILTRATION RATE > 60.0 (>60); GLUCOSE, FASTING 71 MG/DL (60-100); HDL CHOLESTEROL 49.2 MG/DL (>40); LDL CHOLESTEROL 81.4 MG/DL (<100); NON-HDL-C 102.8 MG/DL; POTASSIUM SERUM 4.2 MMOL/L (3.5-5.1); SODIUM LEVEL 136 MMOL/L (136-145); THYROID STIMULATING HORMONE 2.075 uIU/ML (0.55-4.78); TOTAL PROTEIN 6.9 G/DL (5.7-8.2); TRIGLYCERIDES LEVEL 107 MG/DL (<150)
[2023-01-02 14:45] LABS: HIV 1&2 SCREEN CENTAUR NEGATIVE (NEGATIVE)
[2023-01-02 16:37] LABS: GC DNA AMPLIFICATION NEGATIVE (NEGATIVE)
== END ==
LOC: M PLALAB 09:45
PROVIDERS: ATTEND Nurse Practitioner Family
DX: D64.9 Anemia, unspecified (principal); Z13.220 Encounter for screening for lipoid disorders; Z13.1 Encounter for screening for diabetes mellitus; R63.5 Abnormal weight gain

== ENCOUNTER → 2023-03-05 | Outpatient (CLI) | payer OTHER ==
[2023-03-05 12:26] LABS: HEPATITIS B CORE ANTIBODY IGM NEGATIVE (NEGATIVE); HEPATITIS B SURFACE ANTIGEN NEGATIVE (NEGATIVE); HEPATITIS C VIRUS ABY INDEX 0.1 INDEX (<0.8); HIV 1&2 SCREEN NEGATIVE (NEGATIVE)
[2023-03-05 14:44] LABS: GC DNA AMPLIFICATION NEGATIVE (NEGATIVE)
== END ==
LOC: M PLALAB 08:22
PROVIDERS: ATTEND Nurse Practitioner Family
DX: Z12.4 Encounter for screening for malignant neoplasm of cervix (principal); Z11.3 Encounter for screening for infections with a predominantly sexual mode of transmission; R87.610 Atypical squamous cells of undetermined significance on cytologic smear of cervix (ASC-US)

== ENCOUNTER → 2023-03-27 | Outpatient (CLI) | payer OTHER | LOC: M WHC 07:27 | PROVIDERS: ATTEND Nurse Practitioner Family | DX: R10.2 Pelvic and perineal pain (principal) ==